=== PATIENT | male | born 1980 | race Caucasian/White ===

== ENCOUNTER 2020-10-04 18:47 | Emergency (ER) | payer OTHER, SELFPAY ==
--- NOTE | 2020-10-04 18:51 | ED.SKABFB ---
HPI - Skin/Abscess/Foreign Bdy General Chief complaint: Skin/Abscess/Foreign Body Stated complaint: insect bite Time Seen by Provider: 10/04/20 19:10 Source: patient and RN notes reviewed Mode of arrival: ambulatory Limitations: no limitations History of Present Illness HPI narrative: 40-year-old male presents with concern for 2 raised areas of itching, redness on the left side of his neck, left eye drainage, watering, irritation. He denies vision changes, fever, body aches. He reports symptoms started after working in his garden on Wednesday. He reports the raised areas on his neck are mildly tender to touch. Reports he has been using antibiotic ointment on the neck. MD complaint: insect bite/sting Related Data Allergies Allergy/AdvReac Type Severity Reaction Status Date / Time No Known Allergies Allergy Mild Verified 10/04/20 19:21 Review of Systems Review of Systems: Narrative: CONSTITUTIONAL: Denies malaise, chills, sweats, or fever. EYES: Denies visual changes. Reports left eye redness,, irritation, watery discharge. ENT: Denies swollen lips, swollen tongue CARDIOVASCULAR: Denies chest pain, palpitations, or edema. RESPIRATORY: Denies cough or dyspnea. SKIN: Reports 2 raised itchy scabbed areas on the left side of his neck MUSCULOSKELETAL: Denies myalgia. NEUROLOGIC: Deniesheadache. All systems reviewed & are unremarkable except as noted in HPI and below PMFSH Comments At time of signature, agree with nursing past medical, surgical, social and family history. There is no relevant family history pertinent to the presenting complaint Exam Narrative: Exam Narrative: GENERAL: Well-appearing, well-nourished, and in no acute distress. HEAD: Normocephalic, atraumatic. EYES: PERRLA, right conjunctive a and conjunctivae clear, and EOMI. left conjunctive and sclera injected, watery drainage noted ENT: Mucous membranes moist. Oropharynx without edema, erythema or lesions. NECK: Supple. No lymphadenopathy CHEST: Clear to auscultation. No respiratory distress. HEART: Regular rate and rhythm. SKIN: Warm, dry. 2 raised 0.5 cm erythematous areas with central scabs noted to the left side of the neck without surrounding erythema, induration, drainage NEURO: Alert and oriented x3. PSYCH: Normal mood and affect Course Course Emergency Course: Patient is aware of diagnosis, understands and agrees to treatment plan. Anticipatory guidance given. Patient agrees to follow-up as directed and is aware of reasons to seek care at the emergency department. Portions of this record may have been created with voice recognition software Vital Signs Vital signs: Reviewed. MDM - Skin/Abscess/Foreign Bdy MDM Narrative Medical decision making narrative: Does not appear at this time to be erythema multiforme, bullous, SJS, TEN; no evidence at this time to suggest RMSF, endocarditis or Lyme disease; patient looks well, nontoxic and is tolerating oral intake; no neurologic signs or symptoms; no headache, photophobia or neck pain; afebrile; appropriate for initial outpatient treatment; discussed the importance of follow-up, patient agrees; question, viral exanthema, contact dermatitis, allergic dermatitis, eczema, urticaria, insect bites, scabies, cellulitis. No soft palate or uvula edema, no tongue, lip edema or other mucosal involvement, no respiratory compromise, no stridor, no wheezing, no wheezing, no history of syncope, no hypotension, no nausea, vomiting, or diarrhea. Instructed patient to go to nearest ER immediately for any worsening symptoms including but not limited to: fever, spreading rash, pain, sore throat, headache, dizziness, chest pain, trouble breathing, or any symptoms concerning to the patient. Consideration of the following conditions may be warranted for the presenting problem, they are not final diagnoses: Bacterial conjunctivitis, allergic conjunctivitis, viral conjunctivitis, foreign body, blepharitis, chalazion, hordeolum, corneal
[2020-10-04 18:57] VITALS: BP 118/78; PULSE 90; RESP 16; TEMP 36.5; O2SAT 99
== END 2020-10-04 19:30 | disposition home or self-care (01) ==
PROVIDERS: Emergency Provider Nurse Practitioner
DX: A49.9 Bacterial infection, unspecified (principal); H10.32 Unspecified acute conjunctivitis, left eye
CPT/HCPCS: 99213; G0463

== ENCOUNTER 2021-04-04 08:00 | Emergency (ER) | payer OTHER, SELFPAY ==
[2021-04-04 08:27] VITALS: BP 128/81; PULSE 82; RESP 20; TEMP 36.5; O2SAT 100
--- NOTE | 2021-04-04 08:35 | ED.GENADULT ---
HPI - General Adult General Chief complaint: Upper Respiratory Infection Stated complaint: sore throat Time Seen by Provider: 04/04/21 08:17 Source: patient and RN notes reviewed Mode of arrival: ambulatory Limitations: no limitations History of Present Illness HPI narrative: Patient presents today complaining of sore throat x2 days that has been worsening since onset. 5 days ago patient got off a 10-day quarantine from COVID-19. Currently rates his pain 7/10, which increases with eating and swallowing. He has been taking ibuprofen without relief. MD complaint: Sore throat Related Data Allergies Allergy/AdvReac Type Severity Reaction Status Date / Time No Known Allergies Allergy Mild Verified 10/04/20 19:21 Review of Systems Review of Systems: CONSTITUTIONAL: Denies body aches, fever, chills, or sweats. EYES: Denies visual changes, redness, or discharge. ENT: Denies rhinorrhea, congestion, or otalgia.+ Sore throat CARDIOVASCULAR: Denies chest pain, palpitations, or edema. RESPIRATORY: Denies cough or dyspnea. GASTROINTESTINAL: Denies abdominal pain, nausea, vomiting, or diarrhea. GENITOURINARY: Denies dysuria or hematuria. SKIN: Denies rash, itching, or wounds. MUSCULOSKELETAL: Denies back pain, joint pain, or myalgia. NEUROLOGIC: Denies headache, numbness, tingling, or weakness. PSYCH: Denies depression or anxiety. [facility] Past Medical History Medical History (Updated 04/04/21 @ 08:39 by Yaquelin Holbrook, [facility], ) History of COVID-19 Comments At time of signature, I have reviewed and agree with nursing past medical, surgical, social and family history unless otherwise noted. Please see nursing chart for further information. There is no relevant family history pertinent to the presenting complaint Exam Narrative: GENERAL: Well-appearing, well-nourished, and in no acute distress. HEAD: Normocephalic, atraumatic. EYES: EOMI. No redness or drainage. Conjunctivae normal. ENT: Mucous membranes pink and moist. Nares clear. No rhinorrhea. TMs normal bilaterally. Throat normal. Uvula midline. 1 x 2 cm ulceration to the right posterior hard palate. NECK: Normal AROM. Supple. No lymphadenopathy. CHEST: No respiratory distress. Clear to auscultation. HEART: Regular rate and rhythm. No murmur appreciated. Normal peripheral pulses. EXTREMITIES: Normal range of motion. No edema. SKIN: Warm, dry, no rash. Capillary refill normal. Normal skin turgor. NEURO: No focal deficits. Alert and oriented x3. Gait steady. PSYCH: Normal affect. No signs of depression or anxiety. Course Course Level of Care: Express Care Visit Vital Signs Vital signs: Vital Signs Temperature 97.7 F 04/04/21 08:27 Pulse Rate 82 04/04/21 08:27 Respiratory Rate 20 04/04/21 08:27 Blood Pressure 128/81 04/04/21 08:27 Pulse Oximetry 100 04/04/21 08:27 Temperature 97.7 F 04/04/21 08:27 Pulse Rate 82 04/04/21 08:27 Respiratory Rate 20 04/04/21 08:27 Blood Pressure 128/81 04/04/21 08:27 Pulse Oximetry 100 04/04/21 08:27 Reviewed. Pt has been instructed to follow up with his PCP regarding his elevated blood pressure today. Medical Decision Making Differential Diagnosis Differential Diagnosis: Strep throat, pharyngitis, aphthous ulcer, URI Vital Signs Vital Signs: Vital Signs Temperature 97.7 F 04/04/21 08:27 Pulse Rate 82 04/04/21 08:27 Respiratory Rate 20 04/04/21 08:27 Blood Pressure 128/81 04/04/21 08:27 Pulse Oximetry 100 04/04/21 08:27 Temperature 97.7 F 04/04/21 08:27 Pulse Rate 82 04/04/21 08:27 Respiratory Rate 20 04/04/21 08:27 Blood Pressure 128/81 04/04/21 08:27 Pulse Oximetry 100 04/04/21 08:27 Lab Data Lab results reviewed: Yes I reviewed the patient's lab results. Lab results narrative: Rapid strep negative Critical Care Time Critical Care Time Critical Care Time: No Discharge Plan Discharge Clinical Impression: Aphthous ulceration Pat
== END 2021-04-04 08:47 | disposition home or self-care (01) ==
PROVIDERS: Emergency Provider Nurse Practitioner
DX: K12.0 Recurrent oral aphthae (principal); Z86.16 Personal history of COVID-19
CPT/HCPCS: 87081; 87880; 99213; G0463

== ENCOUNTER 2023-07-09 14:52 | Observation (INO) | payer OTHER, SELFPAY ==
--- NOTE | ~2023-07-09 | CT_ITS ---
EXAMINATION: CTA brain carotid DATE: 07/09/2023 15:14 INDICATION: Left hemiparesis. Left facial weakness. TECHNIQUE: Computed tomographic angiography (CTA) of the head was performed with 100 mL Omnipaque-350 intravenous contrast. CTA of the neck was performed with intravenous contrast. Automated exposure co ntrol and iterative reconstruction technique were employed. The dose-length product was 1287.72 mGy-c m. Maximum intensity projection and volume rendered 3D-reconstructions were created by the technologi st on a separate workstation. COMPARISON: Head CT 07/09/2023 FINDINGS: HEAD CTA: There is no intracranial hemorrhage, acute infarction, or abnormal intracranial mass lesion . The ventricles are normal in size. There is mild mucosal thickening in the paranasal sinuses. The o rbits are normal. The mastoid air cells are normal. The vertebral arteries are codominant. There is n o significant stenosis of basilar artery or the posterior cerebral arteries. There is no significant stenosis of the intracranial internal carotid arteries or anterior or middle cerebral arteries. Anter ior communicating artery is normal. The posterior communicating arteries are normal. There is no aneu rysm. NECK CTA: There are no pathologically enlarged lymph nodes. There is no significant stenosis of the v ertebral arteries. There is no visible plaque in the proximal internal carotid arteries. There is 0% stenosis of the proximal right internal carotid artery relative to normal distal artery lumen diamete r (NASCET criteria). There is 0% stenosis of the proximal left internal carotid artery relative to no rmal distal artery lumen diameter. There is interbody fusion at C6-C7. IMPRESSION: 1. Normal brain. No aneurysm or significant intracranial arterial stenosis. 2. 0% stenosis of the proximal internal carotid arteries relative to normal distal artery lumen diame ters (NASCET criteria). Reviewed, dictated and finalized at location A. IMPRESSION: 1. Normal brain. No aneurysm or significant intracranial arterial stenosis. 2. 0% stenosis of the proximal internal carotid arteries relative to normal dis sigrid artery lumen diameters (NASCET criteria).
--- NOTE | ~2023-07-09 | XR_ITS ---
EXAMINATION: XR chest 1V portable DATE: 07/09/2023 15:46 INDICATION: Stroke. TECHNIQUE: A single frontal view of the chest was obtained. COMPARISON: None. FINDINGS: There is no pneumonia, pleural effusion, or pneumothorax. The heart size is normal. IMPRESSION: 1. No acute cardiopulmonary disease. Reviewed, dictated and finalized at location A.
--- NOTE | ~2023-07-09 | CT_ITS ---
EXAMINATION: CT brain wo con DATE: 07/09/2023 15:09 INDICATION: Left-sided hemiparesis and facial droop. TECHNIQUE: Computed tomography (CT) of the head was performed without intravenous contrast. Sagittal and coronal reconstructions were performed. The mA was adjusted according to patient size. Iterative reconstruction technique was employed. The dose-length product was 681.00 mGy-cm. COMPARISON: None FINDINGS: No acute intracranial hemorrhage, acute infarction or abnormal extra axial fluid collection. Ventricl es are normal and symmetric. No mass/mass effect. The orbits, paranasal sinuses and mastoid air cells are normal. IMPRESSION: 1. Normal head CT. Reviewed, dictated and finalized at location A. IMPRESSION: 1. Normal head CT.
--- NOTE | ~2023-07-09 | MR_ITS ---
EXAMINATION: MR brain/brain stem wo/w con DATE: 07/10/2023 12:00 INDICATION: left sided paresthesias TECHNIQUE: Magnetic resonance imaging (MRI) of the brain and brainstem was performed with 17 mL intra venous contrast. Sequences included sagittal and axial T1-weighted SE, axial diffusion-weighted FS EP I ASSET, axial T2*-weighted GRE, axial T2-weighted FLAIR Propeller, and axial T2-weighted Propeller. Postcontrast axial and coronal T1-weighted SE was obtained. Apparent diffusion coefficient (ADC) maps were created. COMPARISON: CT brain and CTA brain carotid 07/09/2023. FINDINGS: No abnormal restricted diffusion to suggest acute ischemic infarct. No MRI evidence of hemorrhage or extra-axial collection. No suspicious foci of susceptibility to suggest prior intraparenchymal hemorr delaney. Normal white matter signal. No evidence of advanced or lobar predominant parenchymal volume los s. The basilar cisterns are patent. Flow voids are preserved. Mild ethmoid and maxillary mucosal thic kening. Globes and orbital contents are within normal limits. No abnormal enhancing lesions. IMPRESSION: Normal MR brain findings. Reviewed, dictated and finalized at location K. IMPRESSION: Normal MR brain findings.
[2023-07-09 14:56] VITALS: BP 148/83; PULSE 95; RESP 18; O2SAT 100
--- NOTE | 2023-07-09 14:57 | ECG_ITS ---
SEE SCANNED COPY FOR CONFIRMED REPORT MTDD
--- NOTE | 2023-07-09 15:04 | ED.NEUROSD ---
HPI - Neuro Symptoms/Deficit General Chief Complaint: Suspected CVA Stated Complaint: L SIDED NUMBNESS/TINGLING SINCE 1245 Time Seen by Provider: 07/09/23 14:56 Source: patient and family () Limitations: no limitations History of Present Illness HPI Narrative: Patient states at 12:45 he experiened tingling on his left inner thigh that quickly spread and became tingling throughtout other parts of left side, down arrm and into neck, all unilateral. He believes this lasted approximately 15 minutes and then approximately 1-1/2 hours later he appreciated the sensation of numbness in these same areas. was concerned about drooping face. His cheek and tongue also has paresthesias but no change in taste sensation. Has not felt weak in this side. This has never occurred before. Related Data Allergies Allergy/AdvReac Type Severity Reaction Status Date / Time No Known Allergies Allergy Mild Verified 07/09/23 14:52 [facility] Past Medical History Medical History (Updated 07/12/23 @ 06:30 by Gertrudis Terry MD) ASD (atrial septal defect) History of COVID-19 Right thalamic infarction Surgical History Surgical History History of tonsillectomy Family History Family History Father Leukemia Afib Mother Hypertension Social History Social History Social History: Surrogate medical decision maker: Nettie Akhtar, spouse. Code status: Full code. Smoking status: Never smoker Additional living arrangements comments: Lives with spouse and children in [place]. 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 Exam Narrative: GENERAL: Well-appearing, well-nourished, and in no acute distress. HEAD: Normocephalic, atraumatic. Mild smile asymmetry without loss of nasolabial fold. EYES: Non injected, non icteric ENT: Nares clear, no rhinorrhea or epistaxis. Possible uvula deviation to the unaffected side though without posterior oropharyngeal mass or significant tonsillar hypertrophy NECK: Supple. CHEST: Speaking in full sentences. No respiratory distress. HEART: Regular rate and rhythm. . ABDOMEN: Soft, nondistended. EXTREMITIES: Normal range of motion. No edema. SKIN: Warm, dry, no rash. NEURO: Strength normal and symmetric throughout. Alert and oriented x3. Follows commands. Speaks without aphasia. Diminished sensation on left compared to right. Symmetry with closing eyes and furrowed brow. PSYCH: Normal mood and affect. Course Vital Signs Vital signs: Vital Signs Pulse Rate 95 07/09/23 14:56 Respiratory Rate 18 07/09/23 14:56 Blood Pressure 148/83 H 07/09/23 14:56 Pulse Oximetry 100 07/09/23 14:56 Oxygen Delivery Room Air 07/09/23 14:56 Temperature 98.4 F 07/10/23 14:00 Pulse Rate 58 L 07/10/23 16:00 Respiratory Rate 18 07/10/23 14:00 Blood Pressure 122/75 07/10/23 14:00 Pulse Oximetry 99 07/10/23 14:00 Oxygen Delivery Room Air 07/10/23 08:35 MDM - Neuro Symptoms/Deficit MDM Narrative Medical decision making narrative: This is a 43 year old male who presents to the emergency department with concern for possible stroke. Last known well is 12:45. The patient is protecting their airway which is patent. An IV is established by nursing staff blood work sent to the lab for evaluation. An EKG will be performed. Accu-Chek was reportedly without major abnormality. NIHSS was evaluated per below. The patient was transported immediately to CT scan per stroke protocol for evaluation of acute intracranial bleed. NIHSS Level Of consciousness: 0 Month and age: 0 Follows commands: 0 Gaze palsy: 0 Visual waldrop: 0 Facial palsy: 1 Left arm motor drift: 0 Right arm motor drift:0 Left leg motor drift:0 Right leg motor drift:0 Limb ataxia:0 Sensation: 1 Aphasia: 0 Dysa
[2023-07-09 15:08] LABS: Glucose Point of Care 116 mg/dl (65-105)
[2023-07-09 15:09] LABS: Estimated Glomerular Filt Rate > 60
[2023-07-09 15:13] LABS: Basophils Absolute Auto 0.1 K/mm3 (0.0-0.1); Eosinophils Absolute Auto 0.2 K/mm3 (0-0.3); Hematocrit 43.4 % (42.0-52.0); Hemoglobin 14.8 g/dL (14.0-18.0); Immature Granulocyte Absolute 0.01 K/mm3 (0.00-0.031); Immature Granulocyte Percent A 0.2 % (0-0.5); Lymphocytes Absolute Auto 2.28 K/mm3 (0.9-3.2); Lymphocytes Percent Auto 38.1 % (18.3-44.2); Mean Corpuscular HGB Conc 34.1 g/dl (32-36); Mean Corpuscular Hemoglobin 30.8 pg (26-34); Mean Corpuscular Volume 90.4 fl (80-100); Mean Platelet Volume 9.2 fl (7.4-10.4); Monocytes Absolute Auto 0.3 K/mm3 (0.1-0.6); Monocytes Percent Auto 5.3 % (2.6-8.5); Neutrophils Absolute Auto 3.1 K/mm3 (1.3-6.7); Neutrophils Percent Auto 52.4 % (45.5-73.1); Platelet Count Result 185 k/mm3 (150-375); Red Cell Distribution Width 11.8 % (11.5-14.5)
[2023-07-09 15:22] VITALS: BP 148/83; PULSE 84; RESP 19; O2SAT 100
[2023-07-09 15:22] LABS: Prothrombin Time 13.2 Seconds (11.1-14.7)
[2023-07-09 15:23] LABS: Partial Thromboplastin Time 30.2 Seconds (22.3-36.8)
[2023-07-09 15:28] LABS: Ethanol < 10 mg/dL (<10)
[2023-07-09 15:29] LABS: Alanine Aminotransferase 19 U/L (6-50); Albumin Level 4.5 g/dL (3.5-5.1); Alkaline Phosphatase 53 U/L (38-126); Anion Gap 6 mmol/L (4-12); Aspartate Amino Transferase 28 U/L (17-59); Bilirubin,Total 0.6 mg/dL (0.2-1.3); Blood Urea Nitrogen 15 mg/dL (9-20); Calcium 9.2 mg/dL (8.4-10.2); Carbon Dioxide 30 mmol/L (22-30); Chloride 102 mmol/L (98-107); Estimated CRCL calculation 96 ml/min; Estimated Glomerular Filt Rate > 60; Glucose 96 mg/dL (65-110); Potassium 3.7 mmol/L (3.4-5.0); Sodium 138 mmol/L (137-145)
[2023-07-09 15:32] VITALS: BP 140/83; PULSE 78; RESP 13; O2SAT 100
[2023-07-09 15:41] LABS: Troponin I < 0.012 ng/mL (0.000-0.034)
[2023-07-09 16:29] LABS: Appearance Urine Clear (Clear); Bilirubin Urine Negative (Negative); Blood Urine Negative (Negative); Color Urine Yellow (Yellow); Glucose Urine UA Negative (Negative); Ketones Urine Negative (Negative); Leukocyte Esterase Ur Negative LEU/UL (Negative); Nitrate Urine Negative (Negative); Protein Urine Negative (Negative); Urobilinogen Urine 0.2 mg/dL (<2.0)
[2023-07-09 16:30] LABS: Add Urine Microscopic? NO; Specific Grav Ur 1.051 (1.001-1.035)
[2023-07-09 16:37] LABS: Cholesterol 151 mg/dL (0-200); HDL Direct 37 mg/dL; Triglycerides 171 mg/dL (<150)
[2023-07-09 16:47] LABS: LDL Cholesterol Direct 96 mg/dL
[2023-07-09 17:04] VITALS: BP 141/96; PULSE 74; RESP 15; O2SAT 98
[2023-07-09] MEDS: ASPIRIN 81 MG CHEWABLE TABLET 324 MG PO (17:04)
--- NOTE | 2023-07-09 17:16 | PM.IMHP ---
H&P: HPI History of Present Illness Date/Time: 07/09/23 17:00 Chief Complaint: Numbness/tingling left side. Narrative: This is a previously healthy 43-year-old male who presented to the emergency department via private vehicle for evaluation of left sided numbness and tingling. The patient provides the following history. He was in his usual state of health when he got up this morning. At approximately 12:45 he developed sudden onset of tingling in the left leg which quickly extended into the left upper extremity and left side of his face to just below the left eye. The tingling lasted for few minutes and since that time his sensation has been blunted in the same distribution. He feels as though the left side of his mouth is drooping slightly as well. He denies vertigo, visual changes, difficulties speaking and swallowing, and focal weakness. He also denies palpitations, sensations of racing heart, and known history of atrial fibrillation. No personal or family history of hypercoagulable state. He denies recent illness and vaccinations. Of note, he had an echocardiogram done several years ago for evaluation of a syncopal episode at which time he was told that he may have a small PFO or ASD but he is uncertain. Event monitor worn thereafter showed transient type 2 heart block, Mobitz 1 which occurred during sleep. In the ED: Blood pressures have been in the 140s over 80s since arrival. CMP and CBC were pretty unremarkable. Urine drug screen was negative. Brain CT what was normal. CTA of the head and neck showed no aneurysm or significant intracranial stenosis and 0% stenosis of the proximal internal carotid arteries. Stroke team at [facility] was consulted by the ED physician and the case was discussed at length. Ultimately the patient decided against tPA given minimal and only sensory deficits. He was given aspirin 324 mg and is being admitted in this setting for further workup. Review of Systems Review of Systems: 12 systems were reviewed and are negative except for as per HPI. [facility] Past Medical History Medical History History of COVID-19 Surgical History Surgical History History of tonsillectomy Family History Family History Father Leukemia Afib Mother Hypertension Social History Social History (Updated 07/09/23 @ 19:37 by Diann Ruelas PA-C) Social History: Surrogate medical decision maker: Nettie Akhtar, spouse. Code status: Full code. Smoking status: Never smoker Additional living arrangements comments: Lives with spouse and children in [place]. 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 Home Medications and Allergies Home Medications Medication Instructions Recorded Confirmed Type No Home Medications 07/09/23 07/09/23 History Allergies Allergy/AdvReac Type Severity Reaction Status Date / Time No Known Allergies Allergy Mild Verified 07/09/23 14:52 Vital Signs Vital Signs - 24 hr 07/09/23 14:56 07/09/23 15:22 07/09/23 15:32 Pulse Rate 95 84 78 Respiratory Rate 18 19 13 Blood Pressure 148/83 H 148/83 H 140/83 Pulse Oximetry 100 100 100 Oxygen Delivery Room Air 07/09/23 17:04 Pulse Rate 74 Respiratory Rate 15 Blood Pressure 141/96 H Pulse Oximetry 98 Oxygen Delivery Exam Narrative: General: Well-developed, nontoxic-appearing male in the semi-Friedman position in bed in no distress. Weight: 86.1 kg. BMI: 25.0. HEENT: Normocephalic, atraumatic. PERRL, EOMI. Sclera anicteric. Oral mucosa moist. Oropharynx clear. Neck: Supple. No bruits. Respiratory: Lungs are clear to auscultation bilaterally. Cardiovascular: Regular rate and rhythm with S1-S2. No murmur, rub, or gallop. Gastrointestinal: Abdomen is soft, nontender, and
[2023-07-09 17:17] LABS: Magnesium 2.1 mg/dL (1.6-2.3)
--- NOTE | 2023-07-09 17:35 | PC.NURSE ---
This patient, Shekhar Akhtar, was admitted to [facility] Surg Room 309-01 at 1735. Patient/family oriented to hospital policies and general routines including ID bracelet, bed and alarms, visiting hours, pain management, procedures, bathroom and other care routines, personal items, smoking policy, room service/diet, and visiting hours. Information on how to activate the Rapid Response Team has been discussed. Patient/Family are encouraged to report perceived risks to care and to ask questions if they do not understand what they are told or what they should do.
[2023-07-09 17:47] LABS: Hemoglobin A1C 5.1 % (<5.7)
[2023-07-09 18:34] LABS: Amphetamine Screen Urine Negative (Negative); Barbiturate Screen Urine Negative (Negative); Benzodiazepines Screen Urine Negative (Negative); Cannabinoid Screen Urine Negative (Negative); Cocaine Screen Urine Negative (Negative); Methadone Screen Urine Negative (Negative); Opiate Screen Urine Negative (Negative); Phencyclidine Screen Urine Negative (Negative)
[2023-07-09 18:36] VITALS: BMI 25.0
[2023-07-09 20:00] VITALS: PULSE 58
[2023-07-09 20:23] LABS: Erythrocyte Sedimentation Rate 11 mm/hr (0-20)
[2023-07-09 20:37] VITALS: BP 111/72; PULSE 53; RESP 14; TEMP 36.2; O2SAT 98
[2023-07-10] VITALS: PULSE 60
--- NOTE | 2023-07-10 | ECHO_ITS ---
Patient Info Name: Shekhar Akhtar Age: 43 years : 1980 Gender: Male Ht: 73 in Wt: 189 lbs BSA: 2.11 m2 HR: 58 bpm BP: 107 / 62 mmHg Heart Rhythm: Sinus Rhythm Technical Quality: Good Exam Date: 07/10/2023 9:59 AM Exam Location: Echo Lab Patient Status: Inpatient Admit Date: 07/09/2023 Staff Ordering Physician: Diann Ruelas PA-C Therapist'S Assistant: Kaycee Vences RDCS Attending Provider: Shakira Atkinson MD Referring Physician: Suraj FOSTER; Exam Type: CA echo doppler w bubble study Study Info Indications - neurologic symptom, hx of possible PFO Complete two-dimensional, color flow and Doppler transthoracic echocardiogram is performed with agitated saline. Summary 1. Left ventricular chamber dimension is normal. 2. Left ventricular systolic function is normal, estimated at 60-65%. 3. There is no increased left ventricular wall thickness. 4. The left ventricular diastolic function is normal. 5. [id number] shunt at the interatrial level with injection of agitated saline consistent with small atrial septal defect. Thin and hypermobile atrial septum. Clinical correlation advised. Consider transesophageal echocardiogram if clinically indicated. 6. There is trace mitral valve regurgitation. 7. There is trace tricuspid valve regurgitation. 8. No pulmonary hypertension, estimated pulmonary arterial systolic pressure is 26 mmHg. Left Ventricle Left ventricular chamber dimension is normal. Left ventricular systolic function is normal, estimated at 60-65%. There is no increased left ventricular wall thickness. The left ventricular diastolic function is normal. Right Ventricle Right ventricular chamber dimension is normal. Right ventricular systolic function is normal. Left Atria Left atrial chamber dimension is normal. Right Atria Right atrial chamber dimension is normal. Atrial Septum [id number] shunt at the interatrial level with injection of agitated saline consistent with small atrial septal defect. Thin and hypermobile atrial septum. Clinical correlation advised. Consider transesophageal echocardiogram if clinically indicated. Aortic Valve The aortic valve is not well visualized. There is no aortic valve stenosis. There is no aortic valve regurgitation. Pulmonic Valve The pulmonic valve is not well visualized. There is trace pulmonic regurgitation. Mitral Valve The mitral valve has normal leaflets. There is trace mitral valve regurgitation. Tricuspid Valve The tricuspid valve leaflets are normal. There is trace tricuspid valve regurgitation. No pulmonary hypertension, estimated pulmonary arterial systolic pressure is 26 mmHg. Pericardium/Pleural The pericardium appears normal. There is no pericardial effusion. Inferior Vena Cava Normal inferior vena cava with <50% collapse upon inspiration consistent with elevated right atrial pressure, 10 mmHg. Aorta The aortic root size at the sinus of Valsalva is normal. Left Ventricular Outflow Tract Name Value Normal LVOT 2D LVOT Diameter 2.1 cm LVOT Doppler LVOT Peak Gradient 5 mmHg LVOT Mean Gradient 3 mmHg LVOT VTI 25 cm
[2023-07-10 04:00] VITALS: PULSE 57
[2023-07-10 05:53] VITALS: BP 107/62; PULSE 58; RESP 16; TEMP 36.6; O2SAT 97
[2023-07-10 08:00] VITALS: PULSE 67
[2023-07-10] MEDS: ASPIRIN 81 MG ENTERIC TABLET PO (08:39)
[2023-07-10] MEDS: ATORVASTATIN 40 MG TABLET PO (08:39)
[2023-07-10 14:00] VITALS: BP 122/75; PULSE 69; RESP 18; TEMP 36.9; O2SAT 99
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
[2023-07-10 16:00] VITALS: PULSE 58
--- NOTE | 2023-07-10 16:41 | PM.DS ---
DS: Admitting Diagnosis Discharge Date 07/10/23 Admitting Diagnosis Left sided numbness DS: Discharge Diagnosis Discharge Diagnosis (1) Neurological symptoms: Code(s): R29.90 - Unspecified symptoms and signs involving the nervous system Status: Acute (2) Elevated blood pressure reading: Code(s): R03.0 - Elevated blood-pressure reading, without diagnosis of hypertension Status: Acute (3) ASD (atrial septal defect): Code(s): Q21.10 - Atrial septal defect, unspecified Status: Acute DS: Summary Hospital Course Reason for hospitalization: 43yo healthy male who presents with left sided numbness. Please see H&P for details. Hospital Course: The patient presented to the emergency department for evaluation of left-sided paresthesias. NIH stroke scale was 2 on arrival (1 for mild left mouth droop and 1 for decreased sensation). EKG showing normal sinus rhythm with possible left atrial enlargement. CT brain was normal. CTA head/neck showing no acute findings. CXR was clear. UA was concenrated but otherwise was normal. CBC, CMP, PT and PTT normal. A1c 5.1. TG 171, TC 151, LDL 96 and HDL 37. ED physician spoke with the stroke team at [facility] and they said it would not be inappropriate to give tPA however given minimal and only sensory deficits his outcome is favorable. Shared decision making was done with the patient who elected against tPA as per ED physician note. Dr. Rizvi, neurology, was consulted and she recommends TIA/stroke workup. Hypercoagulable panel also ordered as well as ESR. Patient was given ASA and admitted. Tele showing 2 episodes of Mobitz type I while sleeping. Brain MRI was normal. ASA continued and Lipitor added. Neurology consulted and recommended adding Plavix for 3 weeks. Echocardiogram with bubble study showing EF 60-65% with right to left shunt at the interatrial level c/w atrial septal defect. He had trace valvular disease. Blood pressure was mildly elevated on admission to 148/83 but normal on repeat so probably related to anxiety. Patient will need further cardiac monitoring so will send to Cardiology for loop recorder. Patient to follow-up with Neurology. Discussed with Cardiology by phone who recommended patient follow-up with them in the clinic for further discussion about evaluation and treatment. He overall did well and was able to be discharged home on 07/10/23. Status at Discharge Cognitive/behavioral status at discharge: stable Time Spent with Patient Time attestation: Total time spent providing and/or coordinating discharge services: 38 minutes Time spent: Greater than 30 minutes Specific discharge activities: discussed with neurology Exam Narrative: AF 98.4 122/75 69 18 99% ra Gen - NARD Chest - CTA bilaterally, nml RR CV - RRR S1/S2. Tele showing 2 episodes of Mobitz I Abd - Soft, NT/ND, Positive BS Ext - No pedal edema Neuro - Alert and oriented. Nonfocal exam. Slight weakness to the left soft palate. Psych - Nml mood and affect Skin - Warm and dry DS: Data Data Completed and Pending Labs on day of discharge: Labs from last 24 hours 07/09/23 07/09/23 07/09/23 19:49 16:21 15:05 ESR 11 Prot C Funct Activity Pending Protein S Activity Pending Factor V Leiden Mutat Pending Factor V Mutat Interp Pending Hemoglobin A1c 5.1 Magnesium 2.1 LDL Cholesterol Direct 96 Urine Opiates Screen Negative Urine Methadone Screen Negative Ur Barbiturates Screen Negative Ur Phencyclidine Scrn Negative Ur Amphetamine Screen Negative U Benzodiazepines Scrn Negative Urine Cocaine Screen Negative U Cannabinoids Screen Negative JAIME Screen Pending Anti-DNA Antibody Pending Beta-2-GPI IgG Ab Pending Beta-2-GPI IgA Ab Pending Beta-2-GPI IgM Ab Pending Phosphatidylserine Ab Pending Phosphatidylserine IgG Pending Phosphatidylserine IgA Pending Phosphatidylse
[2023-07-10] MEDS: CLOPIDOGREL BISULFATE 75 MG TABLET PO (18:06)
--- NOTE | 2023-07-10 18:34 | PC.NURSE ---
I have reviewed Jia's charting and agree with her findings at this time. Will review again once she does care plans and telemetry.
[2023-07-12 14:28] LABS: Rapid Plasma Reagin Non-Reactive (NonReactive)
[2023-07-17 04:43] LABS: PS/PT AB IgG 13 U (< OR = 30); PS/PT AB IgM <9 U (< OR = 30)
[2023-07-18 11:23] LABS: Anti Cardio Antibody IgM <2.0 MPL-U/mL; Anti Cardiolipin Antibody IgA <2.0 APL-U/mL; Anti Cardiolipin Antibody IgG <2.0 GPL-U/mL
[2023-07-19 13:24] LABS: Factor V (Leiden) Mutation NEGATIVE
--- NOTE | 2023-07-20 08:54 | PC.NURSE ---
Factor V is negative. Dr. Ciera coates.
--- NOTE | 2023-07-23 11:41 | PC.NURSE ---
Protein C is WNL at 112. Dr. Ciera coates.
== END 2023-07-10 18:33 | disposition home or self-care (01) ==
LOC: ANHED 16:16 → ANH3MEDSUR 07-10 17:00
PROVIDERS: Admitting Provider Hospitalist; Emergency Provider Student in an Organized Health Care Education/Training Program; Visit Provider Internal Medicine
DX: R20.2 Paresthesia of skin (principal); R29.810 Facial weakness; R03.0 Elevated blood-pressure reading, without diagnosis of hypertension; Q21.10 Atrial septal defect, unspecified; I44.1 Atrioventricular block, second degree; Z86.16 Personal history of COVID-19; Z86.73 Personal history of transient ischemic attack (TIA), and cerebral infarction without residual deficits; R29.702 NIHSS score 2
CPT/HCPCS: 36415; 70450; 70496; 70498; 70553; 71045; 80053; 80061; 80307; 81003; 81241; 82948; 83036; 83735; 84484; 85025; 85303; 85306; 85610; 85652; 85730; 86038; 86146; 86225; 86592; 93005; 93306; 96375; 99285; A9270; A9577; G0378; Q9967

== ENCOUNTER 2024-06-07 00:23 | Day surgery (SDC) | payer OTHER, SELFPAY ==
[2024-06-06 13:41] VITALS: BMI 24.4
[2024-06-07] VITALS (9 sets, daily range): BP systolic 108–128; BP diastolic 72–86; PULSE 60–84; RESP 12–17; TEMP 36.8; O2SAT 98–100
--- OUTSIDE RECORDS SUMMARY | 2024-06-07 00:27 | XMS_ITS | Referral Summary ---
Author Organization [facility] Address [address] [place] [address] Care Team Providers Care Tawer Name Role Phone Alexandr Lan MD Unavailable [phone] Varsha Arenas MD Primary Care Provider [phone] Encounters Date Type Department Care Team Description 05/31/2024 Telephone [facility] Cardiology [address] [facility] [address] [place] [phone] Alexandr Lan MD 05/30/2024 4:36 PM CDT - 05/30/2024 11:59 PM CDT Hospital Encounter [facility] ([facility]) [address] [place] [id number] Tj Silva MD Cerebrovascular accident (CVA) due to embolism of cerebral artery (HCC) Discharge Disposition: Discharge to home or self care 05/26/2024 Telephone [facility] Cardiology [address] [place] [address] [address] [place] [address] Alexandr Lan MD 05/08/2024 8:30 AM DYNAMOMETER TESTER ENGINE Office Visit [facility] Stroke [address] [facility] [address] [place] [phone] Tj Silva MD Cerebrovascular accident (CVA) due to embolism of cerebral artery (HCC) 04/13/2024 8:59 AM DYNAMOMETER TESTER ENGINE - 04/13/2024 11:59 PM DYNAMOMETER TESTER ENGINE Hospital Encounter [facility] ([facility]) [address] [place] [address] Discharge Disposition: Discharge to home or self care 04/13/2024 8:50 AM DYNAMOMETER TESTER ENGINE - 04/13/2024 11:59 PM DYNAMOMETER TESTER ENGINE Hospital Encounter [facility] ([facility]) [address] [place] [address] Discharge Disposition: Discharge to home or self care 04/13/2024 8:47 AM DYNAMOMETER TESTER ENGINE - 04/13/2024 11:59 PM DYNAMOMETER TESTER ENGINE Hospital Encounter [facility] ([facility]) [address] [place] [address] Discharge Disposition: Discharge to home or self care 03/31/2024 Telephone [facility] Scheduling [address] [place] [address] Meeta Hollingsworth 03/29/2024 8:15 AM DYNAMOMETER TESTER ENGINE Office Visit [facility] [address] [facility] [address] [place] [phone] Hillary Richardson, AMY Visual disturbance (Primary Dx); Patent foramen ovale; Cerebrovascular accident (CVA) due to embolism of cerebral artery (HCC) 03/23/2024 Telephone [facility] Ophthalmology [address] [place] [id number] Hillary Richardson, OD FYI from Last 3 Months Allergies No known active allergies Medications aspirin 81 mg enteric coated tablet Take 1 tablet (81 mg total) by mouth daily 4 07/22/19 25 Active clopidogreL (PLAVIX) 75 mg tablet Take 1 tablet (75 mg total) by mouth every morning 90 tablet 4 12/08/19 25 Active Additional Information Patient not taking.Reported on 03/29/2024 atorvastatin (LIPITOR) 40 mg tablet TAKE 1 TABLET(40 MG) BY MOUTH DAILY 90 tablet 3 4 Active Additional Information Patient taking differently: 20 mgoral Daily, Reported on 05/08/2024 multivitamin tablet Take 1 tablet by mouth daily Active OMEGA-3 FATTY ACIDS ORAL Take by mouth 2 (two) times a day Active Active Problems Problem Noted Date Diagnosed Date Visual disturbance 03/29/2024 Assessment & Plan (03/29/2024 12:07 PM DYNAMOMETER TESTER ENGINE): Visual field (VF) full on confrontation Normal RNFL, ganglion cell layer (GCL), and macular thickness OU RTC for baseline HVF Cerebrovascular accident (CV A) due to embolism of cerebral artery 07/15/2023 Patent foramen ovale 07/15/2023 Lentigo 10/05/2012 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 2-3 times a week 08/11/2023 Q2: How many drinks containi ng alcohol do you have on a typical day when you are drinking? 1 or 2 08/11/2023 Q3: How often do you have si x or more drinks on one occasion? Less than monthly 08/11/2023 Personal Safety Answer Date Recorded Have you ever been in or are you currently in a harmful physical or emotional relationship or is someone making you feel afraid or unsafe? Denies 08/11/2023 Sex and Gender Information Value Date Recorded Sex Assigned at Not on file Legal Sex Male 7:22 AM DYNAMOMETER TESTER ENGINE Gender Identity Not on file Sexual Orientation Not on file Last Filed Vital Signs Vital Sign Reading Time Taken Comments Blood Pressure 133/82 05/08/2024 8:00 AM DYNAMOMETER TESTER ENGINE Pulse 65 05/08/2024 8:00 AM DYNAMOMETER TESTER ENGINE Temperature 36.7 C (98.1 F) 08/11/2023 6:50 AM CDT Respiratory Rate 21 08/11/2023 11:50 AM CDT Oxygen Saturation 99% 12/08/2023 8:05 AM CDT Inhaled Oxygen Concentration - - Weight 83.9 kg (185 lb) 05/30/2024 4:44 PM CDT Height 185.4 cm (6' 1 ) 05/30/2024 4:44 PM CDT Body Mass Index 24.41 05/30/2024 4:44 PM CDT Plan of Treatment Not on file Medical Devices Implanted Type Area Set Illustrator Device Identifier Shelf Expiration Date Model / Serial / Lot [employer] 30mm Soft Wire Frame Fluoroscopic Image Septal Occluder [id number] - [id number] - [id number] Implanted:Qty: 1 on 08/11/2023 by Abdirahman Weber MD PhD at [facility] Septal Defect Closure Device N/A: Atrial Septal Defect [employer] 04/08/2025 [id number] / [id number] / Description:3T or less first level [employer] Device Clsr Perclose Prostyle Sut-Mediatd Closure-Repair Sys 64475-69 - [id number] - [id number] Implanted:Qty: 1 on 08/11/2023 by Abdirahman Weber MD PhD at [facility] Vascular Closure Device Right: Femoral Vein [employer] 04/14/2025 [id number] / [id number] / [id number] [employer] Device Clsr Perclose Prostyle Sut-Mediatd Closure-Repair Sys 55629-99 - [id number] - [id number] Implanted:Qty: 1 on 08/11/2023 by Abdirahman Weber MD PhD at [facility] Vascular Closure Device Left: Femoral Vein [employer] 04/14/2025 [id number] / [id number] / [id number] Procedures Procedure Name Priority Date/Time Associated Diagnosis Comments MRI ORBIT W WO CONTRAST Schedule Routine, Read Routine (OP Routine) 05/30/2024 6:09 PM CDT Cerebrovascular accident (CVA) due to embolism of cerebral artery (HCC) MRI BRAIN W WO CONTRAST Schedule Routine, Read Routine (OP Routine) 05/30/2024 6:09 PM CDT Cerebrovascular accident (CVA) due to embolism of cerebral artery (HCC) NEURO CT OUTSIDE REFERENCE Routine 04/13/2024 8:59 AM DYNAMOMETER TESTER ENGINE NEURO CT OUTSIDE REFERENCE Routine 04/13/2024 8:50 AM DYNAMOMETER TESTER ENGINE NEURO MR OUTSIDE REFERENCE Routine 04/13/2024 8:47 AM DYNAMOMETER TESTER ENGINE OCT, RETINA - OU - BOTH EYES Routine 03/29/2024 12:08 PM DYNAMOMETER TESTER ENGINE Visual disturbance OCT, OPTIC NERVE - OU - BOTH EYES Routine 03/29/2024 12:07 PM DYNAMOMETER TESTER ENGINE Visual disturbance from Last 3 Months Results * MRI Brain W WO Contrast (05/30/2024 6:09 PM CDT) Anatomical Region Laterality Modality Head and Neck N/A Magnetic Resonan ce 05/31/2024 10:0 6 AM CDT Impressions 05/31/2024 10:58 AM CDT 1. No acute intracranial abnormality. 2. No acute abnormality of the orbits. 3. There is a 3 mm hypoattenuating focus in the anterior left lateral aspect of the pituitary. Differentials include pituitary microadenoma or pars intermedia cyst. Pituitary protocol MRI can be obtained for further evaluation if clinically indicated. Dictated by: Olvin Jon D.O. The radiology attending physician has personally reviewed this study, and had reviewed and/or edited this written report and agrees with it. Electronically signed by: Jess Serrano M.D. Narrative 05/31/2024 10:58 AM CDT EXAMINATION: 1. Magnetic resonance imaging (MRI) of the brain and brainstem without and with contrast 2. Magnetic resonance imaging (MRI) of the orbits without and with contrast HISTORY: 43 years-old Male with Stroke, follow up. TECHNIQUE: Multiplanar multi-weighted MRI of the brain and brainstem was performed without and with intravenous contrast using the general brain protocol. Multiplanar multi-weighted MRI of the orbits was performed without and with intravenous contrast using the standard protocol. This included multiplanar high resolution imaging of the orbits and optic nerves. Contrast information: 16 mL Gadoterate Meglumine IV COMPARISON: MRI brain 07/10/2023. FINDINGS: ORBITS: Both globes are normal in shape and outline without proptosis. The extraocular muscles are normal in size. No intra- or extraconal masses are present. The intraconal fat is normal. The orbital fernández are intact. The lacrimal glands are normal in appearance. Meckel's cave appears normal on each side. The carotid artery flow voids are normal. The optic nerves and optic chiasm are normal. The suprasellar cistern is normal. There is no abnormal contrast enhancement. BRAIN: The scalp and calvarium are normal. The superior sagittal sinus demonstrates normal venous flow. The corpus callosum is normal in shape and signal intensity. The posterior fossa is unremarkable. There is a 3 mm hypoattenuating focus within the left anterior pituitary (series 5009, image 85; series 18, image 31). The brainstem and craniocervical junction are unremarkable. Diffusion weighted images reveal no hyperintensities to suggest acute cerebral infarction. The susceptibility weighted sequences reveal no evidence of acute or chronic hemorrhage. The ventricles are normal in size and position without evidence of hydrocephalus. Mild paranasal sinus mucosal thickening. The visualized portions of the mastoids are unremarkable. The orbits appear normal. Normal flow voids are demonstrated in the carotid arteries and basilar artery. There is no abnormal contrast enhancement. Procedure Note Jess Serrano MD - 05/31/2024 EXAMINATION: 1. Magnetic resonance imaging (MRI) of the brain and brainstem without and with contrast 2. Magnetic resonance imaging (MRI) of the orbits without and with contrast HISTORY: 43 years-old Male with Stroke, follow up. TECHNIQUE: Multiplanar multi-weighted MRI of the brain and brainstem was performed without and with intravenous contrast using the general brain protocol. Multiplanar multi-weighted MRI of the orbits was performed without and with intravenous contrast using the standard protocol. This included multiplanar high resolution imaging of the orbits and optic nerves. Contrast information: 16 mL Gadoterate Meglumine IV COMPARISON: MRI brain 07/10/2023. FINDINGS: ORBITS: Both globes are normal in shape and outline without proptosis. The extraocular muscles are normal in size. No intra- or extraconal masses are present. The intraconal fat is normal. The orbital fernández are intact. The lacrimal glands are normal in appearance. Meckel's cave appears normal on each side. The carotid artery flow voids are normal. The optic nerves and optic chiasm are normal. The suprasellar cistern is normal. There is no abnormal contrast enhancement. BRAIN: The scalp and calvarium are normal. The superior sagittal sinus demonstrates normal venous flow. The corpus callosum is normal in shape and signal intensity. The posterior fossa is unremarkable. There is a 3 mm hypoattenuating focus within the left anterior pituitary (series 5009, image 85; series 18, image 31). The brainstem and craniocervical junction are unremarkable. Diffusion weighted images reveal no hyperintensities to suggest acute cerebral infarction. The susceptibility weighted sequences reveal no evidence of acute or chronic hemorrhage. The ventricles are normal in size and position without evidence of hydrocephalus. Mild paranasal sinus mucosal thickening. The visualized portions of the mastoids are unremarkable. The orbits appear normal. Normal flow voids are demonstrated in the carotid arteries and basilar artery. There is no abnormal contrast enhancement. IMPRESSION: 1. No acute intracranial abnormality. 2. No acute abnormality of the orbits. 3. There is a 3 mm hypoattenuating focus in the anterior left lateral aspect of the pituitary. Differentials include pituitary microadenoma or pars intermedia cyst. Pituitary protocol MRI can be obtained for further evaluation if clinically indicated. Dictated by: Olvin Jon D.O. The radiology attending physician has personally reviewed this study, and had reviewed and/or edited this written report and agrees with it. Electronically signed by: Jess Serrano M.D. Tj Silva MD [facility] MRI PROCEDURES Final Result * MRI Orbit W WO Contrast (05/30/2024 6:09 PM CDT) Anatomical Region Laterality Modality Head and Neck N/A Magnetic Resonan ce 05/31/2024 10:0 6 AM CDT Impressions 05/31/2024 10:58 AM CDT 1. No acute intracranial abnormality. 2. No acute abnormality of the orbits. 3. There is a 3 mm hypoattenuating focus in the anterior left lateral aspect of the pituitary. Differentials include pituitary microadenoma or pars intermedia cyst. Pituitary protocol MRI can be obtained for further evaluation if clinically indicated. Dictated by: Olvin Jon D.O. The radiology attending physician has personally reviewed this study, and had reviewed and/or edited this written report and agrees with it. Electronically signed by: Jess Serrano M.D. Narrative 05/31/2024 10:58 AM CDT EXAMINATION: 1. Magnetic resonance imaging (MRI) of the brain and brainstem without and with contrast 2. Magnetic resonance imaging (MRI) of the orbits without and with contrast HISTORY: 43 years-old Male with Stroke, follow up. TECHNIQUE: Multiplanar multi-weighted MRI of the brain and brainstem was performed without and with intravenous contrast using the general brain protocol. Multiplanar multi-weighted MRI of the orbits was performed without and with intravenous contrast using the standard protocol. This included multiplanar high resolution imaging of the orbits and optic nerves. Contrast information: 16 mL Gadoterate Meglumine IV COMPARISON: MRI brain 07/10/2023. FINDINGS: ORBITS: Both globes are normal in shape and outline without proptosis. The extraocular muscles are normal in size. No intra- or extraconal masses are present. The intraconal fat is normal. The orbital fernández are intact. The lacrimal glands are normal in appearance. Meckel's cave appears normal on each side. The carotid artery flow voids are normal. The optic nerves and optic chiasm are normal. The suprasellar cistern is normal. There is no abnormal contrast enhancement. BRAIN: The scalp and calvarium are normal. The superior sagittal sinus demonstrates normal venous flow. The corpus callosum is normal in shape and signal intensity. The posterior fossa is unremarkable. There is a 3 mm hypoattenuating focus within the left anterior pituitary (series 5009, image 85; series 18, image 31). The brainstem and craniocervical junction are unremarkable. Diffusion weighted images reveal no hyperintensities to suggest acute cerebral infarction. The susceptibility weighted sequences reveal no evidence of acute or chronic hemorrhage. The ventricles are normal in size and position without evidence of hydrocephalus. Mild paranasal sinus mucosal thickening. The visualized portions of the mastoids are unremarkable. The orbits appear normal. Normal flow voids are demonstrated in the carotid arteries and basilar artery. There is no abnormal contrast enhancement. Procedure Note Jess Serrano MD - 05/31/2024 EXAMINATION: 1. Magnetic resonance imaging (MRI) of the brain and brainstem without and with contrast 2. Magnetic resonance imaging (MRI) of the orbits without and with contrast HISTORY: 43 years-old Male with Stroke, follow up. TECHNIQUE: Multiplanar multi-weighted MRI of the brain and brainstem was performed without and with intravenous contrast using the general brain protocol. Multiplanar multi-weighted MRI of the orbits was performed without and with intravenous contrast using the standard protocol. This included multiplanar high resolution imaging of the orbits and optic nerves. Contrast information: 16 mL Gadoterate Meglumine IV COMPARISON: MRI brain 07/10/2023. FINDINGS: ORBITS: Both globes are normal in shape and outline without proptosis. The extraocular muscles are normal in size. No intra- or extraconal masses are present. The intraconal fat is normal. The orbital fernández are intact. The lacrimal glands are normal in appearance. Meckel's cave appears normal on each side. The carotid artery flow voids are normal. The optic nerves and optic chiasm are normal. The suprasellar cistern is normal. There is no abnormal contrast enhancement. BRAIN: The scalp and calvarium are normal. The superior sagittal sinus demonstrates normal venous flow. The corpus callosum is normal in shape and signal intensity. The posterior fossa is unremarkable. There is a 3 mm hypoattenuating focus within the left anterior pituitary (series 5009, image 85; series 18, image 31). The brainstem and craniocervical junction are unremarkable. Diffusion weighted images reveal no hyperintensities to suggest acute cerebral infarction. The susceptibility weighted sequences reveal no evidence of acute or chronic hemorrhage. The ventricles are normal in size and position without evidence of hydrocephalus. Mild paranasal sinus mucosal thickening. The visualized portions of the mastoids are unremarkable. The orbits appear normal. Normal flow voids are demonstrated in the carotid arteries and basilar artery. There is no abnormal contrast enhancement. IMPRESSION: 1. No acute intracranial abnormality. 2. No acute abnormality of the orbits. 3. There is a 3 mm hypoattenuating focus in the anterior left lateral aspect of the pituitary. Differentials include pituitary microadenoma or pars intermedia cyst. Pituitary protocol MRI can be obtained for further evaluation if clinically indicated. Dictated by: Ovlin Jon D.O. The radiology attending physician has personally reviewed this study, and had reviewed and/or edited this written report and agrees with it. Electronically signed by: Jess Serrano M.D. Tj Silva MD [facility] MRI PROCEDURES Final Result * Neuro CT Outside Reference (04/13/2024 8:59 AM DYNAMOMETER TESTER ENGINE) Impressions RAD_PACS_[facility] - 04/13/2024 8:59 AM DYNAMOMETER TESTER ENGINE These images are for Reference purposes only and have not been reviewed by [facility] Radiology. There will be no report generated by a [facility] Radiologist. Narrative RAD_PACS_[facility] - 04/13/2024 8:59 AM DYNAMOMETER TESTER ENGINE EXAMINATION: Images For Reference Purposes Only Hai Yoon MD IMG CT PROCEDURES Final Re sult Performing Organization Address [facility] de Phone Number RAD_PACS_[facility] * Neuro CT Outside Reference (04/13/2024 8:50 AM DYNAMOMETER TESTER ENGINE) Impressions RAD_PACS_[facility] - 04/13/2024 8:50 AM DYNAMOMETER TESTER ENGINE These images are for Reference purposes only and have not been reviewed by [facility] Radiology. There will be no report generated by a [facility] Radiologist. Narrative RAD_P[facility] - 04/13/2024 8:50 AM DYNAMOMETER TESTER ENGINE EXAMINATION: Images For Reference Purposes Only Hai Yoon MD IMG CT PROCEDURES Final Re sult Performing Organization Address [facility] [place] [facility] de Phone Number [email or web address] * Neuro MR Outside Reference (04/13/2024 8:47 AM DYNAMOMETER TESTER ENGINE) Impressions [facility] - 04/13/2024 8:47 AM DYNAMOMETER TESTER ENGINE These images are for Reference purposes only and have not been reviewed by [facility] Radiology. There will be no report generated by a [facility] Radiologist. Narrative [facility] - 04/13/2024 8:47 AM DYNAMOMETER TESTER ENGINE EXAMINATION: Images For Reference Purposes Only Hai Yoon MD IMG MRI PROCEDURES Final R esult Performing Organization Address [facility] [place] [facility] de Phone Number [facility]_[email or web address] * OCT, Retina - OU - Both Eyes (03/29/2024 12:08 PM DYNAMOMETER TESTER ENGINE) Anatomical Region Laterality Modality Head Optical Coherenc e Tomography Narrative 03/29/2024 12:08 PM DYNAMOMETER TESTER ENGINE Right Eye Quality was good. Scan locations included subfoveal. Progression has no prior data. Findings include normal observations. Left Eye Quality was good. Scan locations included subfoveal. Progression has no prior data. Findings include normal observations. Hillary Richardson OD OPHTH TOMOGRAPHY Final Res ult * OCT, Optic Nerve - OU - Both Eyes (03/29/2024 12:07 PM DYNAMOMETER TESTER ENGINE) Anatomical Region Laterality Modality Head Optical Coherenc e Tomography Narrative 03/29/2024 12:07 PM DYNAMOMETER TESTER ENGINE Right Eye Reliability was good. Temporal thickness was normal. Superior thickness was normal. Nasal thickness was normal. Inferior thickness was normal. Left Eye Reliability was good. Temporal thickness was normal. Superior thickness was normal. Nasal thickness was normal. Inferior thickness was normal. Hillary Richardson OD OPHTH TOMOGRAPHY Final Res ult from Last 3 Mon[address] [facility] CHOICE PLUS [facility] HMO/PPO Address: [facility] [address] [place] [address] [facility] CHOICE [facility] HMO/PPO Address: [place] [address] Advance Directives For more information, please contact: [phone] * Full Code (Latest Code Status on File) Date Activated Date Inactivated Comments 08/11/2023 9:43 AM 08/11/2023 6:12 PM Care Teams Tawer Relationship Specialty Start Date End Date Varsha Arenas MD [address] [place] [address] PCP - General Family Medicine 09/01/23 Alexandr Lan MD [address] [address] Consulting Physician Cardiovascular Disease 07/22/23
--- OUTSIDE RECORDS SUMMARY | 2024-06-07 00:27 | XMS_ITS | Clinical Summary ---
Author Organization [facility] Address [address] [place] [address] Care Team Providers Care Baseball Coach Name Role Phone Alexandr Lan MD Unavailable [phone] Varsha Arenas MD Primary Care Provider [phone] Allergies No known active allergies Medications aspirin 81 mg enteric coated tablet Take 1 tablet (81 mg total) by mouth daily 4 07/22/19 Active clopidogreL (PLAVIX) 75 mg tablet Take [...] 03/29/2024 Assessment & Plan (03/29/2024 12:07 PM INSPECTOR ASSEMBLIES AND INSTALLATIONS): Visual field (VF) full on confrontation Normal RNFL, ganglion cell layer (GCL), and macular thickness OU RTC for baseline HVF Cerebrovascular accident (CV A) due to embolism of cerebral artery 07/15/2023 Patent foramen ovale 07/15/2023 Lentigo 10/05/2012 Capillary hemangioma of skin 10/05/2012 Acne 10/05/2012 Encounters Date Type Department Care Team Description 05/31/2024 Telephone [facility] Cardiology [address] [place] [address] Alexandr Lan MD 05/30/2024 4:36 PM CDT - 05/30/2024 11:59 PM CDT Hospital Encounter [facility] [address] [place] [address] Tj Silva MD Cerebrovascular accident (CVA) due to embolism of cerebral artery (HCC) Discharge Disposition: Discharge to home or self care 05/26/2024 Telephone [facility] Cardiology [address] [place] [address] Alexandr Lan MD 05/08/2024 8:30 AM INSPECTOR ASSEMBLIES AND INSTALLATIONS Office Visit [facility] Stroke [address] [facility] [address] [place] [address] Tj Silva MD Cerebrovascular accident (CVA) due to embolism of cerebral artery (HCC) 04/13/2024 8:59 AM INSPECTOR ASSEMBLIES AND INSTALLATIONS - 04/13/2024 11:59 PM INSPECTOR ASSEMBLIES AND INSTALLATIONS Hospital Encounter [facility]) [address] [place] [address] Discharge Disposition: Discharge to home or self care 04/13/2024 8:50 AM INSPECTOR ASSEMBLIES AND INSTALLATIONS - 04/13/2024 11:59 PM INSPECTOR ASSEMBLIES AND INSTALLATIONS Hospital Encounter [facility]) [address] [place] [address] Discharge Disposition: Discharge to home or self care 04/13/2024 8:47 AM INSPECTOR ASSEMBLIES AND INSTALLATIONS - 04/13/2024 11:59 PM INSPECTOR ASSEMBLIES AND INSTALLATIONS Hospital Encounter [facility] [address] [place] [address] Discharge Disposition: Discharge to home or self care 03/31/2024 Telephone [facility] Scheduling [address] [place] [address] Meeta Hollingsworth 03/29/2024 8:15 AM INSPECTOR ASSEMBLIES AND INSTALLATIONS Office Visit [facility] [address] [facility] [address] [place] [id number] Hillary Richardson, OD Visual disturbance (Primary Dx); Patent foramen ovale; Cerebrovascular accident (CVA) due to embolism of cerebral artery (HCC) 03/23/2024 Telephone [facility] Ophthalmology [facility] [place] [address] Hillary Richardson, OD FYI from Last 3 Months Surgical History Surgery Date Site/Laterality Comments TONSILLECTOMY VASECTOMY OTHER SURGICAL HISTORY wart removal PATENT FORAMEN OVALE CLOSURE Medical History Medical History Date Comments Stroke (HCC) Family History Medical History Relation Name Comments Leukemia Brother Atrial fibrillation Father Zeeshan Cancer Father Zeeshan Hypertension Mother Agnes Atrial fibrillation Paternal Grandfather Leukemia Paternal Grandfather Glaucoma Neg Hx Macular degeneration Neg Hx Relation Name Status Comments Brother Father Zeeshan Mother Agnes Paternal Grandfather Social History Tobacco Use Types Packs/Day Years [...] on file Legal Sex Male 7:22 AM INSPECTOR ASSEMBLIES AND INSTALLATIONS Gender Identity Not on file Sexual Orientation Not on file Obstetrics History Last Filed Vital Signs Vital Sign Reading Time Taken Comments Blood Pressure 133/82 05/08/2024 8:00 AM INSPECTOR ASSEMBLIES AND INSTALLATIONS Pulse 65 05/08/2024 8:00 AM INSPECTOR ASSEMBLIES AND INSTALLATIONS Temperature 36.7 C (98.1 F) 08/11/2023 6:50 AM CDT Respiratory Rate 21 08/11/2023 11:50 AM CDT Oxygen Saturation 99% 12/08/2023 8:05 AM CDT Inhaled Oxygen Concentration - - Weight 83.9 kg (185 lb) 05/30/2024 4:44 PM CDT Height 185.4 cm (6' 1 ) 05/30/2024 4:44 PM CDT Body Mass Index 24.41 05/30/2024 4:44 PM CDT Plan of Treatment Health Maintenance Due Date Last Done Comments Depression Screening 1981 Hepatitis C Screening 1981 Regular Well Visit/Exam 18-64 06/23/1999 Pneumococcal vaccine <65 (1 of 2 - PCV) 2000 Varicella Vaccines (1 of 2 - 13+ 2-dose series) 02/03/2007 Covid-19 Vaccine (4 - 2023- season) 2023 12/17/2020, 03/25/2020, 03/04/2020 Influenza Vaccine (#1) 2023 , 12/12/2020, 01/06/2007, Additional history exists DTaP/Tdap/Td Vaccine (2 - Td or Tdap) 05/10/2027 05/10/2017, 08/08/2002, 07/26/2002 Hepatitis B Screening Completed 04/26/2006 , 08/08/2002, 07/26/2002 HPV Vaccines Aged Out No longer eligi ble based on patient's age to complete this topic Medical Devices Implanted Type 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 [employer] Device Identifier Shelf Expiration Date Model / Serial / Lot [employer] 30mm Soft Wire Frame Fluoroscopic Image Septal Occluder [id number] - [id number] - [id number] Implanted:Qty: 1 on 08/11/2023 by Abdirahman Weber MD PhD at [facility] Septal Defect Closure Device N/A: Atrial Septal Defect Wl [employer] 04/08/2025 [id number] / [id number] / Description:3T or less first level [employer] Device Clsr Perclose Prostyle Sut-Mediatd Closure-Repair Sys [id number] - [id number] - [id number] Implanted:Qty: 1 on 08/11/2023 by Abdirahman Weber MD PhD at [facility] Vascular Closure Device Right: Femoral Vein [employer] 04/14/2025 [id number] / [id number] / [id number] [employer] Device Clsr Perclose Prostyle Sut-Mediatd Closure-Repair Sys [id number] - [id number] - [id number] Implanted:Qty: 1 on 08/11/2023 by Abdirahman Weber MD PhD at [facility] Vascular Closure Device Left: Femoral Vein [employer] 04/14/2025 [id number] / [id number] / [id number] Procedures Procedure Name Priority Date/Time Associated Diagnosis [...] CT OUTSIDE REFERENCE Routine 04/13/2024 8:59 AM INSPECTOR ASSEMBLIES AND INSTALLATIONS NEURO CT OUTSIDE REFERENCE Routine 04/13/2024 8:50 AM INSPECTOR ASSEMBLIES AND INSTALLATIONS NEURO MR OUTSIDE REFERENCE Routine 04/13/2024 8:47 AM INSPECTOR ASSEMBLIES AND INSTALLATIONS OCT, RETINA - OU - BOTH EYES Routine 03/29/2024 12:08 PM INSPECTOR ASSEMBLIES AND INSTALLATIONS Visual disturbance OCT, OPTIC NERVE - OU - BOTH EYES Routine 03/29/2024 12:07 PM INSPECTOR ASSEMBLIES AND INSTALLATIONS Visual disturbance from Last 3 Months Results [...] evaluation if clinically indicated. Dictated by: Olvin Herndier, D.O. The radiology attending physician has personally [...] by: Jess Serrano M.D. Tj Silva MD [facility] MRI PROCEDURES Final Result * MRI Orbit [...] by: Jess Serrano M.D. Tj Silva MD IMG MRI PROCEDURES Final Result * Neuro CT Outside Reference (04/13/2024 8:59 AM INSPECTOR ASSEMBLIES AND INSTALLATIONS) Impressions [facility] - 04/13/2024 8:59 AM INSPECTOR ASSEMBLIES AND INSTALLATIONS These images are for Reference purposes only and have not been reviewed by [facility] Radiology. There will be no report generated by a [facility] Radiologist. Narrative [facility] - 04/13/2024 8:59 AM INSPECTOR ASSEMBLIES AND INSTALLATIONS EXAMINATION: Images For Reference Purposes Only Hai Yoon MD IM CT PROCEDURES Final Re sult [facility] * Neuro CT Outside Reference (04/13/2024 8:50 AM INSPECTOR ASSEMBLIES AND INSTALLATIONS) Impressions [facility] - 04/13/2024 8:50 AM INSPECTOR ASSEMBLIES AND INSTALLATIONS These images are for Reference purposes only and have not been reviewed by [facility] Radiology. There will be no report generated by a [facility] Radiologist. Narrative [facility] - 04/13/2024 8:50 AM INSPECTOR ASSEMBLIES AND INSTALLATIONS EXAMINATION: Images For Reference Purposes Only Hai Yoon MD IMG CT PROCEDURES Final Re sult Performing Organization Address [facility] Co de Phone Number [email or web address] * Neuro MR Outside Reference (04/13/2024 8:47 AM INSPECTOR ASSEMBLIES AND INSTALLATIONS) Impressions [facility] - 04/13/2024 8:47 AM INSPECTOR ASSEMBLIES AND INSTALLATIONS These images are for Reference purposes only and have not been reviewed by [facility] Radiology. There will be no report generated by a [facility] Radiologist. Narrative [facility] - 04/13/2024 8:47 AM INSPECTOR ASSEMBLIES AND INSTALLATIONS EXAMINATION: Images For Reference Purposes Only Hai Yoon MD IMG MRI PROCEDURES Final R esult Performing Organization Address [facility] de Phone Number [email or web address] * OCT, Retina - OU - Both Eyes (03/29/2024 12:08 PM INSPECTOR ASSEMBLIES AND INSTALLATIONS) Anatomical Region Laterality Modality Head Optical Coherenc e Tomography Narrative 03/29/2024 12:08 PM INSPECTOR ASSEMBLIES AND INSTALLATIONS Right Eye Quality was good. Scan locations included subfoveal. Progression has no prior data. Findings include normal observations. Left Eye Quality was good. Scan locations included subfoveal. Progression has no prior data. Findings include normal observations. Hillary Richardson OD OPHTH TOMOGRAPHY Final Res ult * OCT, Optic Nerve - OU - Both Eyes (03/29/2024 12:07 PM INSPECTOR ASSEMBLIES AND INSTALLATIONS) Anatomical Region Laterality Modality Head Optical Coherenc e Tomography Narrative 03/29/2024 12:07 PM INSPECTOR ASSEMBLIES AND INSTALLATIONS Right Eye Reliability was good. Temporal thickness was normal. Superior thickness was normal. Nasal thickness was normal. Inferior thickness was normal. Left Eye Reliability was good. Temporal thickness was normal. Superior thickness was normal. Nasal thickness was normal. Inferior thickness was normal. Result [facility] Hillary Richardson OD OPHTH TOMOGRAPHY Final Res ult from Last 3 Months Insurance [facility] [employer] Advance Directives For more information, please contact: [phone] * Full Code (Latest Code Status on File) Date Activated Date Inactivated Comments 08/11/2023 9:43 AM 08/11/2023 6:12 PM Care Teams Baseball Coach Relationship Specialty Start Date End Date Varsha Arenas MD [address] [place] [address] PCP - General Family Medicine 09/01/23 Alexandr Lan MD [address] [place] [address] Consulting Physician Cardiovascular Disease 07/22/23
--- OUTSIDE RECORDS SUMMARY | 2024-06-07 00:27 | XMS_ITS | Clinical Summary ---
Author Organization [facility] Address [address] [place] [address] Care Team Providers Care Body Welder Name Role Phone Varsha Arenas MD Primary Care Provider [phone] Medications ibuprofen (MOTRIN) 200 MG tablet Take 400 mg by mouth as needed. Active Active Problems Problem Noted Date Diagnosed Date Syncope 03/25/2022 Palpitations 03/25/2022 2nd degree AV block 03/25/2022 Family History Medical History Relation Comments Atrial fibrillation Father CHF Father Leukemia Father Open Heart Maternal Grandfather Relation Status Comments Brother 1 Alive Brother 2 Alive Father Maternal Grandfather Maternal Grandmother Mother Alive Paternal Grandfather Paternal Grandmother Sister Alive Social History Tobacco Use Types Packs/Day Years Used Date Smoking Tobacco: Never Smokeless Tobacco: Never Tobacco Cessation:Counseling Given: Not Answered Alcohol Use Standard Drinks/Week Comments Yes 2 (1 standard drink = 0.6 oz pur e alcohol) Sex and Gender Information Value Date Recorded Sex Assigned at Not on file Legal Sex Male 7:12 PM CDT Gender Identity Not on file Sexual Orientation Not on file 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 Not on file Not on file Not on file Last Filed Vital Signs Vital Sign Reading Time Taken Comments Blood Pressure 112/74 09/28/2022 10:12 AM CDT Pulse 58 09/28/2022 10:12 AM CDT Temperature - - Respiratory Rate - - Oxygen Saturation 99% 09/28/2022 10: 12 AM CDT Inhaled Oxygen Concentration - - Weight 83.4 kg (183 lb 12.8 oz) 023 10:12 AM CDT Height 185.4 cm (6' 1 ) 09/28/2022 10:1 2 AM CDT Body Mass Index 24.25 09/28/2022 10:12 AM CDT Plan of Treatment Health Maintenance Due Date Last Done Comments Annual Physical 1984 Hepatitis C 06/23/1999 Hepatitis B Vaccines (3 of 3 - 19+ 3-dose series) 06/21/2006 04/26/2006, 08/08/2002, 07/26/2002 COVID-19 Vaccine ( season) 2023 01/13/2022, 09/23/2021, 12/17/2020, Additional history exists Influenza Adult (#1) 2023 11/27/2021, 12/12/2020, 01/06/2007, Additional history exists DTaP, Tdap and Td Vaccines (2 - Td or Tdap) 05/10/2027 05/10/2017, 08/08/2002, 07/26/2002 Meningococcal Vaccine Aged Out 08/08/2002, 003 No longer eligible based on patient's age to complete this topic HPV Vaccines Aged Out No longer eligi ble based on patient's age to complete this topic Meningococcal B Vaccine Aged Out No l onger eligible based on patient's age to complete this topic Pneumococcal Vaccine: Pediatrics (0 to 5 Years) and At-Risk Patients (6 to 64 Years) Aged Out No longer eligible based on patient's age to complete this topic RSV Immunizations Under 20 Months Aged Out No longer eligible based on patient's age to complete this topic Insurance [place] [address] [facility] Care Teams Body Welder Relationship Specialty Start Date End Date Varsha Arenas MD [address] [place] [address] PCP - General FAMILY PRACTICE 02/17/22
--- OUTSIDE RECORDS SUMMARY | 2024-06-07 00:27 | XMS_ITS | Clinical Summary ---
Author Organization [facility] Address [address] [place] [address] Care Team Providers Care Oncologist Name Role Phone [facility], [facility] Abdirahman Murguia Primary Care Pr ovider Source Comments [facility],non-owned Affiliates and Associated Physician Practices is amultiple site organization consisting of ambulatory clinics and hospital sitesin [place] and [place]. This disclosure is being madepursuant to the Care Everywhere program and may not contain all information available regarding this patient. Last updated 17.[facility] Allergies No known active allergies Medications * Be aware that medications may not be up to date on this document. Alwaysverify current medications with the patient. Medication Sig Dispensed Refills Start Date End Date Status atorvastatin (Lipitor) 40 MG tablet Take 1 (one) tablet by mouth once daily 09/01/2023 Active aspirin EC (Ecotrin) 81 MG tablet TAKE ONE TABLET BY MOUTH ONCE A DAY TAKE WITH FOOD. 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 (A FLURIA, FLUZONE QUADRIVALENT; 6MO+) (IIV4) 04/26/2006,12/28/2002 MENINGOCOCAL MENINGITIS 08/08/2002,07/26/2002 MMR 08/08/2002,07/26/2002 POLIO IPV 08/08/2002,07/26/2002 SMALLPOX (VACCINIA) VACCINE, LIVE 10/02/2006 TDAP (7yrs+) 05/10/2017 TYPHOID IM 08/03/2006 Td (Adult), 2 Lf Tetanus Tox oid, Adsorbed, Pf 08/08/2002,07/26/2002 Family History Medical History Relation Name Comments Other - Cardiac Brother 1 PFO Sleep Disorder - Sleep apnea Brother 2 Colon polyps Brother 3 Nephrolithiasis Brother 3 Sleep Disorder - Sleep apnea Brother 3 None Known Brother 4 None Known Brother 5 Diabetes - Type 2 Father Leukemia Father Other - Cardiac Father atrial fibri llation Sleep Disorder - Sleep apnea Father Other - Cardiac Maternal Grandfather CAD Cancer - Colon Maternal Grandmother in he r 90's Dementia Maternal Grandmother Hypertension Mother Thyroid Disease Mother low Leukemia Paternal Grandfather Other - Cardiac Paternal Grandfather atri al fibrillation None Known Sister Relation Name Status Comments Brother 1 Alive Brother 2 Alive Brother 3 Alive Brother 4 Alive Brother 5 Alive Father Maternal Grandfather Maternal Grandmother Mother Alive Paternal Grandfather Paternal Grandmother Sister Alive Social History Tobacco Use Types Packs/Day Years Used Date Smoking Tobacco: Never Smokeless Tobacco: Never Tobacco Cessation:Counseling Given: Yes PHQ-2 Answer Date Recorded Patient Health Questionnaire-2 Score 0 02/22/2023 Sex and Gender Information Value Date Recorded Sex Assigned at Not on file Gender Identity Not on file Sexual Orientation Not on file Last Filed Vital Signs Vital Sign Reading Time Taken Comments Blood Pressure 116/78 12/16/2023 9:17 AM CDT Pulse 64 12/16/2023 9:17 AM CDT Temperature - - Respiratory Rate 14 12/16/2023 9:17 AM CDT Oxygen Saturation 98% 12/16/2023 9:17 AM CDT Inhaled Oxygen Concentration - - Weight 85.2 kg (187 lb 12.8 oz) 12/16/2023 9:17 AM CDT Height 182.9 cm (6') 12/16/2023 9:17 AM CDT Body Mass Index 25.47 12/16/2023 9:17 AM CDT Plan of Treatment Health Maintenance Due Date Last Done Comments HIV SCREENING 1996 HEPATITIS B VACCINE (3 of 3 - 19+ 3-dose series) 06/21/2006 04/26/2006, 08/08/2002, 07/26/2002 COVID-19 VACCINE ( season) 2023 01/13/2022, 09/23/2021, 12/17/2020, Additional history exists INFLUENZA VACCINE (#1) 2023 1, 01/06/2007, 04/26/2006, Additional history exists DEPRESSION SCREENING 03/15/2024 02/23/2023, 12/18/19 22 SCREENING FOR DIABETES 11/30/2026 4, 01/05/2023, 12/03/2021, Additional history exists DTAP/TDAP/TD VACCINES (2 - Td or Tdap) 05/10/2027 05/10/2017, 08/08/2002, 07/26/2002 ZOSTER VACCINE (1 of 2) 06/23/2031 MENINGOCOCCAL GROUPS A/C/Y/W VACCINE Aged Out 08/08/2002, 07/26/2002 No longer eligibl e based on patient's age to complete this topic HEPATITIS C SCREENING Completed 12/03/2021 HIB VACCINE Aged Out No longer eligi ble based on patient's age to complete this topic HPV VACCINE Aged Out No longer eligi ble based on patient's age to complete this topic MENINGOCOCCAL (Group B) VACCINE SHARED DECISION-MAKING Aged Out No longer eligible based on patient's age to complete this topic PNEUMOCOCCAL VACCINE Aged Out No long er eligible based on patient's age to complete this topic Procedures Procedure Name Priority Date/Time Associated Diagnosis Comments COMPREHENSIVE METABOLIC PANEL Routine 12/01/2023 6:45 AM CDT Annual physical exam - [facility] HEPATITIS C ANTIBODY Routine 12/03/2021 7:44 AM CDT Annual physical exam - [facility] from Last 3 Months or Most Recently Relevant to Health Maintenance Results * COMPREHENSIVE METABOLIC PANEL (12/01/2023 6:45 AM CDT) Glucose 82 70 - 99 mg/dL [facility] ACCOUNT BILL BUN 16 6 - 24 mg/dL [facility] ACCOUNT BILL Creatinine 1.26 0.76 - 1.27 mg/dL [facility] ACCOUNT BILL eGFR by CKD-EPI 73 >59 mL/min/1.7 3 [facility] ACCOUNT BILL BUN/Creatinine Ratio 13 9 - 20 [facility] ACCOUNT BILL Sodium 140 134 - 144 mmol/L [facility] ACCOUNT BILL Potassium 3.7 3.5 - 5.2 mmol/L [facility] ACCOUNT BILL Chloride 101 96 - 106 mmol/L [facility] ACCOUNT BILL CO2 25 20 - 29 mmol/L [facility] ACCOUNT BILL Calcium 9.3 8.7 - 10.2 mg/dL [facility] ACCOUNT BILL Protein Total 6.5 6.0 - 8.5 g/dL [facility] ACCOUNT BILL Albumin 4.4 4.1 - 5.1 g/dL [facility] ACCOUNT BILL Globulin Total 2.1 1.5 - 4.5 g/dL [facility] ACCOUNT BILL Bilirubin Total 0.6 0.0 - 1.2 mg/dL [facility] ACCOUNT BILL Alkaline Phosphatase 78 44 - 121 IU/L [facility] ACCOUNT BILL AST 21 0 - 40 IU/L [facility] ACCOUNT BILL ALT 25 0 - 44 IU/L [facility] ACCOUNT BILL Blood BLOOD SPECIMEN / Unknown 12/01/2023 6:45 AM CDT 12/01/2023 Narrative [facility] ACCOUNT BILL - 12/02/2023 9:13 AM CDT Performed at: - [facility] [address] [place], [place] [id number] C D Still Operator: Jeffery Sanon PhD, Phone: [phone] Idalmis Andre MD LAB - CHEMISTRY BOB BERNAL Performing Organization Address City/[facility]/ZIP Co de Phone Number [facility] ACCOUNT BILL [address] [place] [address] * HEPATITIS C ANTIBODY (12/03/2021 7:44 AM CDT) Hepatitis C Antibody <0.1 0.0 - 0.9 s/co ratio [facility] ACCOUNT BILL Comment: Negative: < 0.8 Indeterminate: 0.8 - 0.9 Positive: > 0.9 . HCV antibody alone does not differentiate between previous resolved infection and active infection. The CDC and current clinical guidelines recommend that a positive HCV antibody result be followed up with an HCV RNA test to support the diagnosis of acute HCV infection. [facility] offers Hepatitis C Virus (HCV) RNA, Diagnosis, DARVIN (488013) and Hepatitis C Virus (HCV) Antibody with reflex to Quantitative Real-time PCR (270506). FASTING Blood BLOOD SPECIMEN / Unknown 12/03/2021 7:44 AM CDT 12/04/2021 Narrative Resulting Agency Comment Lab Testing performed at: [facility] [place] [address] [facility] [id number] Dejuan España MD LAB - CHEMISTRY BOB BERNAL Performing Organization Address [facility] Co de Phone Number [facility] ACCOUNT BILL [address] [place] [address] from Last 3 Months or Most Recently Relevant to Health Maintenance Care Teams Oncologist Relationship Specialty Start Date End Date [facility] Murguia [address] [place] [address] [facility] 01/07/21
--- OUTSIDE RECORDS SUMMARY | 2024-06-07 00:27 | XMS_ITS | Clinical Summary ---
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 Gender Identity Not on file Sexual Orientation Not on file Plan of Treatment Health Maintenance Due Date Last Done Comments Hepatitis C Virus (HCV) Screening 1981 TdaP Immunization 1981 Hepatitis B Immunization (1 of 3 - 19+ 3-dose series) 2000 Influenza Immunization (#1) 2023 12/12/2020 SARS-COV-2 Immunization ( season) 2023 12/17/2020, 03/25/2020, 03/04/2020 Respiratory Syncytial Virus (RSV) Immunization (Adult) (1 - 1-dose 75+ series) 2056 Meningococcal Immunization (ACWY) Aged Out No longer eligible b ased on patient's age to complete this topic Pneumococcal Immunization Combined Aged Out No longer eligible b ased on patient's age to complete this topic Rotavirus Immunization Aged Out No lo nger eligible based on patient's age to complete this topic
--- OUTSIDE RECORDS SUMMARY | 2024-06-07 00:27 | XMS_ITS | Encounter Summary ---
Author Organization [facility] Address [address] [place] [id number] Care Team Providers Care Custom Van Converter Name Role Phone Varsha Arenas MD Primary Care Provider [phone] Encounter Details Date Type Department Care Team (Late st Contact Info) Description 03/30/2022 Abstract [facility] [address] Brian Tabares MA Social History Tobacco Use Types Packs/Day Years Used Date Smoking Tobacco: Never Smokeless Tobacco: Never Alcohol Use Standard Drinks/Week Comments Yes 2 (1 standard drink = 0.6 oz pur e alcohol) Sex and Gender Information Value Date Recorded Sex Assigned at Not on file Legal Sex Male 7:12 PM CDT Gender Identity Not on file Sexual Orientation Not on file 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 encounter Plan of Treatment Not on file documented as of this encounter Procedures Procedure Name Priority Date/Time Associated Diagnosis Comments COMPREHENSIVE METABOLIC PANEL Routine 07/09/2023 LIPID PANEL Routine 07/09/2023 CBC, MANUAL DIFF Routine 07/09/2023 CBC (OUTSIDE LAB) Routine 01/13/2022 BASIC METABOLIC PANEL Routine 01/13/2022 LIPID PANEL Routine 01/13/2022 THYROID STIM HORMONE TSH Routine 01/13/2022 documented in this encounter Results * COMPREHENSIVE METABOLIC PANEL (07/09/2023) SODIUM S/P/B 138 GLUCOSE 96 mg/dL AST 28 BUN 15 CREATININE S/P/B 1.0 0.7 - 1.3 CALCIUM S/P/B 9.2 POTASSIUM S/P/B 3.7 CHLORIDE S/P/B 102 ALT 19 GFR ESTIMATE >60 Default History Genericprovider LABORATORY Final Result * LIPID PANEL (07/09/2023) CHOLESTEROL 151 TRIGLYCERIDES 171 HDL 37 LDL (CALCULATED) 96 Default History Genericprovider LABORATORY Final Result * CBC, MANUAL DIFF (07/09/2023) WBC 6.0 HGB 14.8 HCT 43.4 PLT 185 Default History Genericprovider LABORATORY Final Result * CBC (OUTSIDE LAB) (01/13/2022) WBC 5.8 HGB 15.4 HCT 44.3 PLT 201 01/13/2022 Default History Genericprovider LAB-OUTSIDE/ABST RACTED Final Result * THYROID STIM HORMONE, TSH (01/13/2022) TSH 1.313 01/13/2022 Default History Genericprovider LABORATORY Final Result * LIPID PANEL (01/13/2022) CHOLESTEROL 190 HDL 43 TRIGLYCERIDES 95 LDL (CALCULATED) 128 01/13/2022 us Default History Genericprovider LABORATORY Final Result * BASIC METABOLIC PANEL (01/13/2022) SODIUM S/P/B 139 POTASSIUM S/P/B 4.9 CO2 27 CHLORIDE S/P/B 103 GLUCOSE 93 mg/dL CALCIUM S/P/B 9.8 BUN 13 CREATININE S/P/B 1.25 0.7 - 1.3 EGFR NON-AFR. AMER. 74.7 <=90 01/13/2022 us Default History Genericprovider LABORATORY Final Result documented in this encounter Visit Diagnoses Not on filedocumented in this encounter Care Teams Custom Van Converter Relationship Specialty Start Date End Date Varsha Arenas MD [address] [place] [address] PCP - General FAMILY PRACTICE 02/17/22 documented as of this encounter
--- OUTSIDE RECORDS SUMMARY | 2024-06-07 00:27 | XMS_ITS | Continuity of Care Document ---
Author Name [facility] Organization [facility] Care Team Providers Care Jewelry Technician Name Role Phone [facility] Unavailable Unavailable Problems Combined list of problems from Department [facility] and [facility] Affairs facilities. It does not include entries that were removed or entered in error. 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 [facility] Diagnosis: ICD-10-CM R00.2 Palpitations Active Diagnosis [facility] Diagnosis: ICD-10-CM B07.9 Viral wart, unspecified Active Diagnosis [facility] Diagnosis: ICD-10-CM L57.0 Actinic keratosis Active Diagnosis [facility] Diagnosis: ICD-10-CM J98.4 Other disorders of lung Active Diagnosis [facility] Diagnosis: ICD-10-CM R53.82 Chronic fatigue, unspecified Active Diagnosis [facility] Medications Combined list of outpatient medications from [facility] and [facility] facilities.Medications provided include 1) outpatient medications from the last 15 months, and 2) patient-reported medications. Medication Details Route Status Patient Instructions Prescription Expires Prescription Number Last Dispense Date Ordering Provider Order Date Order Qty Source ASPIRIN 81MG TAB,EC TAKE ONE TABLET BY MOUTH ONCE A DAY TAKE WITH FOOD. ORAL ACTIVE 07/21/2024 [id number] DANAYNI DHI 2023 120 [facility] ATORVASTATI N CA 40MG TAB TAKE ONE TABLET BY MOUTH EVERY EVENING FOR HIGH CHOLESTE ROL NOTE TABLET STRENGTH /DIRECTI ONS CHANGE ORAL ACTIVE 04/18/2025 [id number] DANAY,NI DHI 2024 90 [facility] AT[place]STAT[place] N [place] 80MG TAB TAKE ONE-HALF TABLET BY MOUTH EVERY EVENING FOR HIGH CHOLESTE ROL ORAL DISCONT INUED 07/21/2024 [id number] DANAY,NI DHI 2023 45 [facility] SALICYLIC ACID 40% PLASTER APPLY PLASTER TO AFFECTED AREA(S) ONCE A DAY NEEDED FOR WART REMOVAL (EXTERNA L USE ONLY) TOPICA L ACTIVE 06/11/2024 [id number] NGONADI,N WANNEOMA N 2023 90 [facility] Immunizations Combined list of available immunizations from the Department of Defense and Veterans Affairs facilities. Immunization Series Date Given Administered By Site Reaction Lot Number CVX Code Drug Asset Protection Officer Status Comments Source COVID-19 (PFIZER), MRNA, LNP-S, BIVALENT BOOSTER, PF, 30 MCG/0.3 ML DOSE 1 2021 300 complet ed PFR; [id number]; 3 [facility] COVID-19 (PFIZER), MRNA, LNP-S, PF, 30 MCG/0.3 ML DOSE, VANCE-SUCROSE (AGES 12+ YEARS) 4 2021 217 complet ed PFR; [id number]; 2 [facility] COVID-19 (FreshPlanet), MRNA, LNP-S, PF, 30 MCG/0.3 ML DOSE 3 2020 208 complet ed [facility] COVID-19 ([employer]Plan[employer]), MRNA, LNP-S, PF, 30 MCG/0.3 ML DOSE 2 2020 208 complet ed [facility] COVID-19 ([employer]), MRNA, LNP-S, PF, 30 MCG/0.3 ML DOSE 1 2019 208 complet ed [facility] TDAP 2017 115 complet ed Right Deltoid [facility] Results Combined list of recent chemistry, hematology and other laboratory results from Department of Defense and Veterans Affairs, ranging from 15 months to all on record, depending upon the facility. Order Name Results Value Reference Range Date Interpretation Specimen Comments Source TSH (MA-PB) THYROTROPIN [UNITS/VOLU ME] IN SERUM OR PLASMA 1.043 u[IU]/ mL 0.47 - 5 02/23 Specimen Type: SERUM No comment entered. Ordering Provider: CYN JON I Report Released Date/Time: Feb 02, 2024 12:54 PM Reporting Lab: [facility] [address] [place] [phone] Performing Lab: [address] [address] [facility] MICRAL/CR EAT PROFILE (STL) ALBUMIN [MASS/VOLUM E] IN URINE <5.0mg /L 02/23 Specimen Type: URINE Comment: uALB/CREAT Ratio Unable to be calculated Unable to calculate due to Microalbumi n < 5.0 mg/L Ordering Provider: CYN JON I Report Released Date/Time: Feb 02, 2024 12:54 PM Reporting Lab: [address] [phone] Performing Lab: [address] [phone] [facility] MICRAL/CR EAT PROFILE (STL) ALBUMIN/CRE ATININE [MASS RATIO] IN URINE commen tmg/g 0 - 29 02/23 Specimen Type: URINE Comment: uALB/CREAT Ratio Unable to be calculated Unable to calculate due to Microalbumi n < 5.0 mg/L Ordering Provider: CYN JON I Report Released Date/Time: Feb 02, 2024 12:54 PM Reporting Lab: [facility] [address] [place] [phone] Performing Lab: [address] [address] [facility] MICRAL/CR EAT PROFILE (STL) CREATININE [MASS/VOLUM E] IN URINE 128.0 mg/dL 63 - 166 02/23 Specimen Type: URINE Comment: uALB/CREAT Ratio Unable to be calculated Unable to calculate due to Microalbumi n < 5.0 mg/L Ordering Provider: CYN JON I Report Released Date/Time: Feb 02, 2024 12:54 PM Reporting Lab: [facility] [address] [phone] Performing Lab: [facility] [address] [phone] [facility] HGA1C HEMOGLOBIN A1C/HEMOGLO BIN.TOTAL IN BLOOD 5.4 4.0 - 6.0 02/23 Specimen Type: BLOOD No comment entered. Ordering Provider: CYN JON I Report Released Date/Time: Feb 02, 2024 12:54 PM Reporting Lab: [facility] [address] [phone] Performing Lab: [facility] [address] [place] [phone] [facility] COMPREHEN SIVE METABOLIC PANEL CREATININE [MASS/VOLUM E] IN SERUM OR PLASMA 1.09 mg/dL 0.7 - 1.3 02/23 Specimen Type: PLASMA Comment: No hemolysis noted. Ordering Provider: CYN JON I Report Released Date/Time: Feb 02, 2024 12:54 PM Reporting Lab: [facility] [address] [place] [phone] Performing Lab: [facility] [address] [phone] [facility] COMPREHEN SIVE METABOLIC PANEL UREA NITROGEN [MASS/VOLUM E] IN SERUM OR PLASMA 15.2 mg/dL 9.0 - 25.0 02/23 Specimen Type: PLASMA Comment: No hemolysis noted. Ordering Provider: CYN JON I Report Released Date/Time: Feb 02, 2024 12:54 PM Reporting Lab: [facility] [address] [phone] Performing Lab: [facility] [address] [place] [phone] [facility] COMPREHEN SIVE METABOLIC PANEL GLUCOSE [MASS/VOLUM E] IN SERUM OR PLASMA 99 mg/dL 72 - 99 02/23 Specimen Type: PLASMA Comment: No hemolysis noted. Ordering Provider: DANAY,NIDH I Report Released Date/Time: Feb 02, 2024 12:54 PM Reporting Lab: [facility] [address] [phone] Performing Lab: [facility] [address] [phone] [facility] COMPREHEN SIVE METABOLIC PANEL SODIUM [MOLES/VOLU ME] IN SERUM OR PLASMA 140 meq/L 136 - 145 02/23 Specimen Type: PLASMA Comment: No hemolysis noted. Ordering Provider: CYN JON I Report Released Date/Time: Feb 02, 2024 12:54 PM Reporting Lab: [facility] [address] [place] [phone] Performing Lab: [facility] [address] [phone] [facility] COMPREHEN SIVE METABOLIC PANEL POTASSIUM [MOLES/VOLU ME] IN SERUM OR PLASMA 4.7 meq/L 3.5 - 5 02/23 Specimen Type: PLASMA Comment: No hemolysis noted. Ordering Provider: CYN JON I Report Released Date/Time: Feb 02, 2024 12:54 PM Reporting Lab: [facility] [address] [phone] Performing Lab: [facility] [address] [phone] [facility] COMPREHEN SIVE METABOLIC PANEL CHLORIDE [MOLES/VOLU ME] IN SERUM OR PLASMA 105 meq/L 98 - 107 02/23 Specimen Type: PLASMA Comment: No hemolysis noted. Ordering Provider: CYN JON I Report Released Date/Time: Feb 02, 2024 12:54 PM Reporting Lab: [facility] [address] [phone] Performing Lab: [facility] [address] [phone] [facility] COMPREHEN SIVE METABOLIC PANEL CARBON DIOXIDE, TOTAL [MOLES/VOLU ME] IN SERUM OR PLASMA 25 meq/L 22 - 31 02/23 Specimen Type: PLASMA Comment: No hemolysis noted. Ordering Provider: CYN JON I Report Released Date/Time: Feb 02, 2024 12:54 PM Reporting Lab: [facility] [address] [place], [place] [phone] Performing Lab: [facility] [address] [place] [phone] [facility] COMPREHEN SIVE METABOLIC PANEL CALCIUM [MASS/VOLUM E] IN SERUM OR PLASMA 9.5 mg/dL 8.4 - 10.4 02/23 Specimen Type: PLASMA Comment: No hemolysis noted. Ordering Provider: CYN JON I Report Released Date/Time: Feb 02, 2024 12:54 PM Reporting Lab: [facility] [address] [place], [place] [phone] Performing Lab: [facility] [address] [place], [place] [phone] COMPREHEN SIVE METABOLIC PANEL PROTEIN [MASS/VOLUM E] IN SERUM OR PLASMA 7.1 g/dL 6 - 8.6 02/23 Specimen Type: PLASMA Comment: No hemolysis noted. Ordering Provider: CYN JON I Report Released Date/Time: Feb 02, 2024 12:54 PM Reporting Lab: [facility] [address] [place] [phone] Performing Lab: [facility] [address] [place] [phone] [facility] COMPREHEN SIVE METABOLIC PANEL ALBUMIN [MASS/VOLUM E] IN SERUM OR PLASMA 4.4 g/dL 3.4 - 5 02/23 Specimen Type: PLASMA Comment: No hemolysis noted. Ordering Provider: CYN JON I Report Released Date/Time: Feb 02, 2024 12:54 PM Reporting Lab: [facility] [address] [place], [place] [phone] Performing Lab: [facility] [address] [place] [phone] [facility] COMPREHEN SIVE METABOLIC PANEL BILIRUBIN.T OTAL [MASS/VOLUM E] IN SERUM OR PLASMA 0.5 mg/dL 0.2 - 1.2 02/23 Specimen Type: PLASMA Comment: No hemolysis noted. Ordering Provider: CYN JON I Report Released Date/Time: Feb 02, 2024 12:54 PM Reporting Lab: [facility] [address] [phone] Performing Lab: [facility] [address] [place] [phone] [facility] COMPREHEN SIVE METABOLIC PANEL ALKALINE PHOSPHATASE [ENZYMATIC ACTIVITY/VO LUME] IN SERUM OR PLASMA 64 U/L 40 - 150 02/23 Specimen Type: PLASMA Comment: No hemolysis noted. Ordering Provider: CYN JON I Report Released Date/Time: Feb 02, 2024 12:54 PM Reporting Lab: [facility] [address] [place] [phone] Performing Lab: [facility] [address] [place] [phone] [facility] COMPREHEN SIVE METABOLIC PANEL ASPARTATE AMINOTRANSF ERASE [ENZYMATIC ACTIVITY/VO LUME] IN SERUM OR PLASMA 33 U/L 5 - 34 02/23 Specimen Type: PLASMA Comment: No hemolysis noted. Ordering Provider: CYN JON I Report Released Date/Time: Feb 02, 2024 12:54 PM Reporting Lab: [facility] [address] [place] [phone] Performing Lab: [facility] [address] [place] [phone] [facility] COMPREHEN SIVE METABOLIC PANEL ALANINE AMINOTRANSF ERASE [ENZYMATIC ACTIVITY/VO LUME] IN SERUM OR PLASMA 39 U/L 8 - 40 02/23 Specimen Type: PLASMA Comment: No hemolysis noted. Ordering Provider: CYN JON I Report Released Date/Time: Feb 02, 2024 12:54 PM Reporting Lab: [facility] [address] [place] [phone] Performing Lab: [facility] [address] [place] [phone] [facility] COMPREHEN SIVE METABOLIC PANEL GLOMERULAR FILTRATION RATE/1.73 SQ M.PREDICTED [VOLUME RATE/AREA] IN SERUM, PLASMA OR BLOOD BY CREATININE- BASED FORMULA (CKD-EPI 2020) 86.9 60 02/23 Specimen Type: PLASMA Comment: No hemolysis noted. Ordering Provider: CYN JON I Report Released Date/Time: Feb 02, 2024 12:54 PM Reporting Lab: [address] [phone] Performing Lab: [address] [phone] [place] [address] CBC LEUKOCYTES [#/VOLUME] IN BLOOD BY AUTOMATED COUNT 5.6 10*3/u L 3.6 - 11.2 02/23 Specimen Type: BLOOD No comment entered. Ordering Provider: CYN JON I Report Released Date/Time: Feb 02, 2024 12:54 PM Reporting Lab: [address] [phone] Performing Lab: [facility] [address] [place] [phone] [facility] CBC ERYTHROCYTE S [#/VOLUME] IN BLOOD BY AUTOMATED COUNT 4.89 10*6/u L 4.10 - 5.70 02/23 Specimen Type: BLOOD No comment entered. Ordering Provider: CYN JON I Report Released Date/Time: Feb 02, 2024 12:54 PM Reporting Lab: [facility] [address] [place] [phone] Performing Lab: [facility] [address] [place] [phone] [facility] CBC HEMOGLOBIN [MASS/VOLUM E] IN BLOOD 14.9 g/dL 13.1 - 16.8 02/23 Specimen Type: BLOOD No comment entered. Ordering Provider: CYN JON I Report Released Date/Time: Feb 02, 2024 12:54 PM Reporting Lab: [address] [phone] Performing Lab: [place] [phone] [facility] CBC HEMATOCRIT [VOLUME FRACTION] OF BLOOD 43.6 38.2 - 48.4 02/23 Specimen Type: BLOOD No comment entered. Ordering Provider: CYN JON I Report Released Date/Time: Feb 02, 2024 12:54 PM Reporting Lab: [address] [phone] Performing Lab: [address] [phone] [facility] CBC MCV [ENTITIC VOLUME] BY AUTOMATED COUNT 89.2 fL 80.0 - 100.0 02/23 Specimen Type: BLOOD No comment entered. Ordering Provider: CYN JON I Report Released Date/Time: Feb 02, 2024 12:54 PM Reporting Lab: [address] [phone] Performing Lab: [address] [phone] [facility] CBC MCH [ENTITIC MASS] BY AUTOMATED COUNT 30.5 pg 27.0 - 34.0 02/23 Specimen Type: BLOOD No comment entered. Ordering Provider: CYN JON I Report Released Date/Time: Feb 02, 2024 12:54 PM Reporting Lab: [address] [phone] Performing Lab: [address] [phone] [facility] CBC MCHC [MASS/VOLUM E] BY AUTOMATED COUNT 34.2 g/dL 33.0 - 36.0 02/23 Specimen Type: BLOOD No comment entered. Ordering Provider: CYN JON I Report Released Date/Time: Feb 02, 2024 12:54 PM Reporting Lab: [address] [phone] Performing Lab: [address] [phone] [facility] CBC PLATELETS [#/VOLUME] IN BLOOD BY AUTOMATED COUNT 180 10*3/u L 150 - 400 02/23 Specimen Type: BLOOD No comment entered. Ordering Provider: CYN JON I Report Released Date/Time: Feb 02, 2024 12:54 PM Reporting Lab: [facility] [address] [place] [phone] Performing Lab: [address] [phone] [facility] CBC PLATELET MEAN VOLUME [ENTITIC VOLUME] IN BLOOD BY AUTOMATED COUNT 10.0 fL 7.5 - 11.2 02/23 Specimen Type: BLOOD No comment entered. Ordering Provider: CYN JON I Report Released Date/Time: Feb 02, 2024 12:54 PM Reporting Lab: [address] [address] Performing Lab: [address] [phone] [place] [address] CBC ERYTHROCYTE DISTRIBUTIO N WIDTH [RATIO] BY AUTOMATED COUNT 11.9 11.8 - 15.1 02/23 Specimen Type: BLOOD No comment entered. Ordering Provider: CYN JON I Report Released Date/Time: Feb 02, 2024 12:54 PM Reporting Lab: [facility] [address] [place] [phone] Performing Lab: [address] [phone] [facility] CBC LYMPHOCYTES /100 LEUKOCYTES IN BLOOD BY AUTOMATED COUNT 35 02/23 Specimen Type: BLOOD No comment entered. Ordering Provider: CYN JON I Report Released Date/Time: Feb 02, 2024 12:54 PM Reporting Lab: [facility] [address] [place] [phone] Performing Lab: [address] [phone] [facility] CBC MONOCYTES/1 00 LEUKOCYTES IN BLOOD BY AUTOMATED COUNT 7 02/23 Specimen Type: BLOOD No comment entered. Ordering Provider: DANAY,NIDH I Report Released Date/Time: Feb 02, 2024 12:54 PM Reporting Lab: [facility] [address] [place] [phone] Performing Lab: [facility] [address] [place] [phone] [facility] CBC NEUTROPHILS /100 LEUKOCYTES IN BLOOD BY AUTOMATED COUNT 53 02/23 Specimen Type: BLOOD No comment entered. Ordering Provider: CYN JON I Report Released Date/Time: Feb 02, 2024 12:54 PM Reporting Lab: [facility] [address] [place] [phone] Performing Lab: [facility] [address] [place] [phone] [place] [address] CBC EOSINOPHILS /100 LEUKOCYTES IN BLOOD BY AUTOMATED COUNT 5 02/23 Specimen Type: BLOOD No comment entered. Ordering Provider: CYN JON I Report Released Date/Time: Feb 02, 2024 12:54 PM Reporting Lab: [facility] [address] [place] [phone] Performing Lab: [facility] [address] [place] [phone] [facility] CBC BASOPHILS/1 00 LEUKOCYTES IN BLOOD BY AUTOMATED COUNT 1 02/23 Specimen Type: BLOOD No comment entered. Ordering Provider: CYN JON I Report Released Date/Time: Feb 02, 2024 12:54 PM Reporting Lab: [facility] [address] [place] [phone] Performing Lab: [facility] [address] [place] [phone] [facility] CBC LYMPHOCYTES [#/VOLUME] IN BLOOD BY AUTOMATED COUNT 1.92 10*3/u L 0.77 - 4.50 02/23 Specimen Type: BLOOD No comment entered. Ordering Provider: CYN JON I Report Released Date/Time: Feb 02, 2024 12:54 PM Reporting Lab: [facility] [address] [place] [phone] Performing Lab: [facility] [address] [phone] [facility] CBC MONOCYTES [#/VOLUME] IN BLOOD BY AUTOMATED COUNT 0.37 10*3/u L 0.19 - 0.80 02/23 Specimen Type: BLOOD No comment entered. Ordering Provider: CYN JON I Report Released Date/Time: Feb 02, 2024 12:54 PM Reporting Lab: [facility] [address] [place] [phone] Performing Lab: [facility] [address] [place] [phone] [facility] CBC NEUTROPHILS [#/VOLUME] IN BLOOD BY AUTOMATED COUNT 2.95 10*3/u L 2.10 - 8.00 02/23 Specimen Type: BLOOD No comment entered. Ordering Provider: CYN JON I Report Released Date/Time: Feb 02, 2024 12:54 PM Reporting Lab: [facility] [address] [place] [phone] Performing Lab: [facility] [address] [place] [phone] [facility] CBC EOSINOPHILS [#/VOLUME] IN BLOOD BY AUTOMATED COUNT 0.27 10*3/u L 0.00 - 0.60 02/23 Specimen Type: BLOOD No comment entered. Ordering Provider: CYN JON I Report Released Date/Time: Feb 02, 2024 12:54 PM Reporting Lab: [facility] [address] [place] [phone] Performing Lab: [facility] [address] [place] [phone] [facility] CBC BASOPHILS [#/VOLUME] IN BLOOD BY AUTOMATED COUNT 0.05 10*3/u L 0.00 - 0.20 02/23 Specimen Type: BLOOD No comment entered. Ordering Provider: CYN JON I Report Released Date/Time: Feb 02, 2024 12:54 PM Reporting Lab: [facility] [address] [place] [phone] Performing Lab: [facility] [address] [facility] [place] [phone] [facility] LIPID PANEL (STL) CHOLESTEROL [MASS/VOLUM E] IN SERUM OR PLASMA 120 mg/dL 0 - 200 02/23 Specimen Type: PLASMA Comment: No hemolysis noted. Ordering Provider: CYN JON I Report Released Date/Time: Feb 02, 2024 12:54 PM Reporting Lab: [facility] [address] [place] [phone] Performing Lab: [facility] [address] [place] [phone] [facility] LIPID PANEL (STL) TRIGLYCERID E [MASS/VOLUM E] IN SERUM OR PLASMA 57 mg/dL 0 - 150 02/23 Specimen Type: PLASMA Comment: No hemolysis noted. Ordering Provider: CYN JON I Report Released Date/Time: Feb 02, 2024 12:54 PM Reporting Lab: [facility] [address] [place] [phone] Performing Lab: [facility] [address] [place] [phone] [facility] LIPID PANEL (STL) CHOLESTEROL IN LDL [MASS/VOLUM E] IN SERUM OR PLASMA BY CALCULATION 61 mg/dL 02/23 Specimen Type: PLASMA Comment: No hemolysis noted. Ordering Provider: CYN JON I Report Released Date/Time: Feb 02, 2024 12:54 PM Reporting Lab: [facility] [address] [place] [phone] Performing Lab: [facility] [address] [place] [phone] [facility] LIPID PANEL (STL) CHOLESTEROL IN HDL [MASS/VOLUM E] IN SERUM OR PLASMA 48 mg/dL 40 02/23 Specimen Type: PLASMA Comment: No hemolysis noted. Ordering Provider: CYN JON I Report Released Date/Time: Feb 02, 2024 12:54 PM Reporting Lab: [facility] [address] [place] [phone] Performing Lab: [facility] [address] [facility] [place] [phone] [facility] BASIC METABOLIC PANEL CREATININE [MASS/VOLUM E] IN SERUM OR PLASMA 1.04 mg/dL 0.7 - 1.3 12/07 Specimen Type: PLASMA Comment: No hemolysis noted. Ordering Provider: CYN JON I Report Released Date/Time: Dec 04, 2022 10:37 AM Reporting Lab: [facility] [address] [place] [phone] Performing Lab: [facility] [address] [place] [phone] [facility] UREA NITROGEN [MASS/VOLUM E] IN SERUM OR PLASMA 13.1 mg/dL 9.0 - 25.0 12/07 Specimen Type: PLASMA Comment: No hemolysis noted. Ordering Provider: CYN JON I Report Released Date/Time: Dec 04, 2022 10:37 AM Reporting Lab: [facility] [address] [place] [phone] Performing Lab: [address] [phone] [facility] METABOLIC PANEL GLUCOSE [MASS/VOLUM E] IN SERUM OR PLASMA 95 mg/dL 72 - 99 12/07 Specimen Type: PLASMA Comment: No hemolysis noted. Ordering Provider: CYN JON I Report Released Date/Time: Dec 04, 2022 10:37 AM Reporting Lab: [facility] [address] [place] [phone] Performing Lab: [facility] [address] [place] [phone] [facility] BASIC METABOLIC PANEL SODIUM [MOLES/VOLU ME] IN SERUM OR PLASMA 138 meq/L 136 - 145 12/07 Specimen Type: PLASMA Comment: No hemolysis noted. Ordering Provider: CYN JON I Report Released Date/Time: Dec 04, 2022 10:37 AM Reporting Lab: [facility] [address] [place] [phone] Performing Lab: [facility] [address] [facility] [place] [address] [facility] BASIC METABOLIC PANEL POTASSIUM [MOLES/VOLU ME] IN SERUM OR PLASMA 4.4 meq/L 3.5 - 5 12/07 Specimen Type: PLASMA Comment: No hemolysis noted. Ordering Provider: CYN JON I Report Released Date/Time: Dec 04, 2022 10:37 AM Reporting Lab: [facility] [address] [facility] [phone] Performing Lab: [facility] [address] [facility] [address] [facility] BASIC METABOLIC PANEL CHLORIDE [MOLES/VOLU ME] IN SERUM OR PLASMA 105 meq/L 98 - 107 12/07 Specimen Type: PLASMA Comment: No hemolysis noted. Ordering Provider: CYN JON I Report Released Date/Time: Dec 04, 2022 10:37 AM Reporting Lab: [facility] [address] [facility] [address] Performing Lab: [facility] [address] [facility] [address] [facility] BASIC METABOLIC PANEL CARBON DIOXIDE, TOTAL [MOLES/VOLU ME] IN SERUM OR PLASMA 23 meq/L 22 - 31 12/07 Specimen Type: PLASMA Comment: No hemolysis noted. Ordering Provider: CYN JON I Report Released Date/Time: Dec 04, 2022 10:37 AM Reporting Lab: [facility] [address] [facility] [phone] Performing Lab: [facility] [address] [facility] [address] [facility] BASIC METABOLIC PANEL CALCIUM [MASS/VOLUM E] IN SERUM OR PLASMA 9.1 mg/dL 8.4 - 10.4 12/07 Specimen Type: PLASMA Comment: No hemolysis noted. Ordering Provider: CYN JON I Report Released Date/Time: Dec 04, 2022 10:37 AM Reporting Lab: [facility] [address] [facility] [address] Performing Lab: [facility] [address] [facility] [place] [address] [facility] BASIC METABOLIC PANEL GLOMERULAR FILTRATION RATE/1.73 SQ M.PREDICTED [VOLUME RATE/AREA] IN SERUM, PLASMA OR BLOOD BY CREATININE- BASED FORMULA (CKD-EPI 2020) 92.5 60 12/07 Specimen Type: PLASMA Comment: No hemolysis noted. Ordering Provider: CYN JON I Report Released Date/Time: Dec 04, 2022 10:37 AM Reporting Lab: [facility] [address] [facility] [place] [address] Performing Lab: [facility] [address] [facility] [address] [facility] Vital Signs Combined list of inpatient and outpatient Vital Signs from Department of Defense and Veterans Affairs, ranging from 12 months to all on record, depending upon the facility. Vital Sign Value Date Comments Source SYSTOLIC BLOOD PRESSURE 124 07/21/19 24 11:48:57 [facility] DIASTOLIC BLOOD PRESSURE 75 024 11:48:57 [facility] PULSE OXIMETRY 99 07/21/2023 11:48:57 [facility] WEIGHT 185.4 07/21/2023 11:48:57 [facility] BMI 25 kg/m2 07/21/2023 11:48:57 [facility] PAIN 0 07/21/2023 11:48:57 [facility] HEIGHT 73 07/21/2023 11:48:57 [facility] TEMPERATURE 98 07/21/2023 11:48:57 [facility] PULSE 64 07/21/2023 11:48:57 [facility] RESPIRATION 16 07/21/2023 11:48:57 [facility] Encounters Combined list of: 1) Encounters from Department of Veterans Affairs facilities going backup to the last 18 months, not all VA inpatient encounters are included; 2) Encounters from the Department of Defense facilities going backup to 280 months. Location Location Details Encounter Type Encounter Number Reason For Visit Attending Provider ADM Date DC Date Status Disposition Source [facility] OFFICE O/P EST MOD 30-39 MIN [id number] Diagnos is: ICD-10- CM R00.2 Palpita tions DANAY,NID HI 12/04 [facility] Outpatient Encounter [id number] Diagnos is: ICD-10- CM R53.82 Chronic fatigue , unspeci fied GINA DiJUDITH 12/07 [facility] Outpatient Encounter [id number] Diagnos is: ICD-10- CM J98.4 Other disorde rs of lung DANAY,NID HI 12/22 [facility] Outpatient Encounter [id number] 01/28 [facility] OFFICE O/P EST MOD 30 MIN [id number] Diagnos is: ICD-10- CM R00.2 Palpita tions DANAY,NID HI 05/31 [facility] OFFICE O/P NEW LOW 30 MIN [id number] Diagnos is: ICD-10- CM L57.0 Actinic keratos is PAXTON BORRERO R 06/10 [facility] Outpatient Encounter [id number] ROXANE DUVAL R 07/15 [facility] OFFICE O/P EST LOW 20 MIN [id number] Diagnos is: ICD-10- CM B07.9 Viral wart, unspeci fied Kaelyn RAMIREZ 07/15 [facility] OFFICE O/P EST MOD 30 MIN [id number] Diagnos is: ICD-10- CM R00.2 Palpita tions DANAY,NID HI 07/20 [facility] Outpatient Encounter [id number] 08/23 [facility] Outpatient Encounter [id number] MEAGAN VORA R 11/17 [facility] Outpatient Encounter [id number] MEAGAN VORA R 11/17 [facility] Outpatient Encounter [id number] MEAGAN VORA R 11/17 [facility] Outpatient Encounter [id number] MEAGAN VORA R 11/18 [facility] Outpatient Encounter [id number] MEAGAN VORA R 11/18 [facility] Outpatient Encounter [id number] DANAYNID HI 02/02 [facility] Outpatient Encounter [id number] DANAYNID HI 02/03 [facility] Outpatient Encounter [id number] DANAYNID HI 02/17 [facility] N [facility] OFFICE O/P EST MOD 30 MIN [id number] Diagnos is: ICD-10- CM R00.2 Palpita tions CAROLINA JON HI 02/17 [facility] Outpatient Encounter [id number] STEPHANI GARCIA 03/13 [facility] SAI [place] Social History Combined list of available smoking, tobacco, and other social history from Department of Defense and Veterans Affairs facilities. Social History Type Response Date Comment [facility] e Tobacco smoking status NHIS TX-TOBACCO NEVER USED CIGARETTES 02/18/2024 [facility] History of tobacco use TX-TOBACCO NEVER USED OTHER TYPE 02/18/2024 [facility] History of tobacco use TX-TOBACCO NEVER USED 12/04/2022 [facility] History of tobacco use TX-TOBACCO NEVER USED 09/23/2021 [facility]
--- OUTSIDE RECORDS SUMMARY | 2024-06-07 00:27 | XMS_ITS | Encounter Summary ---
Author Organization [facility] Address [address] [place] [address] Phone Care Team Providers Care Tank Worker Name Role Phone No, Physician Primary Care Provider [phone] Fran Nguyễn DO Primary Care Provider [phone] Alexandr Lan MD Unavailable [phone] Varsha Arenas MD Primary Care Provider [phone] Encounter Details Date Type Department Care Team (Latest Contact Info) Description 07/09/2023 Orders Only [facility] Scanning, Provider Social History Tobacco Use Types Packs/Day Years Used Date Smoking Tobacco: Never Personal Safety Answer Date Recorded Getting School Help Needed Not on file 07/11 Sex and Gender Information Value Date Recorded Sex Assigned at Not on file 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[employer] Gender Identity Not on file Sexual Orientation Not on file documented as of this encounter Plan of Treatment Not on file documented as of this encounter Procedures Procedure Name Priority Date/Time Associated Diagnosis Comments CARDIOLOGY DOCUMENT SCAN 07/09/2023 documented in this encounter Results * Cardiology Document Scan (07/09/2023) Anatomical Region Laterality Modality Other us Provider Scanning CV CARDIAC SERVICES PROCEDURES Final Result documented in this encounter Visit Diagnoses Not on filedocumented in this encounter Care Teams Tank Worker Relationship Specialty Start Date End Date No, Physician PCP - General 07/09/23 07/14/23 Fran Nguyễn DO NPI: [id number] [place] [address] [place] [address] PCP - General Family Medicine 07/15/23 08/31/23 Varsha Arenas MD [address] [place] [address] PCP - General Family Medicine 09/01/23 Alexandr Lan MD [address] [place] [address] [address] [place] [address] Consulting Physician Cardiovascular Disease 07/22/23 documented as of this encounter
--- OUTSIDE RECORDS SUMMARY | 2024-06-07 00:27 | XMS_ITS | Encounter Summary ---
Author Organization [facility] Address [address] [place] [address] Care Team Providers Care Success Coach Name Role Phone No, Physician Primary Care Provider [phone] Fran Nguyễn DO Primary Care Provider [phone] Alexandr Lan MD Unavailable [phone] Varsha Arenas MD Primary Care Provider [phone] Encounter Details Date Type Department Care Team (Late st Contact Info) Description 07/10/2023 Orders Only [facility] Health Information Management [address] [place] [address] Scanning, Provider Social History Tobacco Use Types Packs/Day Years Used Date Smoking Tobacco: Never Personal Safety Answer Date Recorded Getting School Help Needed Not on file 07/11 Sex and Gender Information Value Date Recorded Sex Assigned at Not on file 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 Gender Identity Not on file Sexual Orientation Not on file documented as of this encounter Plan of Treatment Not on file documented as of this encounter Procedures Procedure Name Priority Date/Time Associated Diagnosis Comments CARDIOLOGY DOCUMENT SCAN 07/10/2023 SCAN - RADIOLOGY/IMAGING 07/09/2023 documented in this encounter Results * Cardiology Document Scan (07/10/2023) Anatomical Region Laterality Modality Other us Provider Scanning CV CARDIAC SERVICES PROCEDURES Final Result * SCAN - RADIOLOGY/IMAGING (07/09/2023) Anatomical Region Laterality Modality Other us Provider Scanning Edited Result - Final documented in this encounter Visit Diagnoses Not on filedocumented in this encounter Care Teams Success Coach Relationship Specialty Start Date End Date No, Physician PCP - General 07/09/23 07/14/23 Fran Nguyễn DO [address] [address] PCP - General Family Medicine 07/15/23 08/31/23 Varsha Arenas MD [address] [place] [address] PCP - General Family Medicine 09/01/23 Alexandr Lan MD [address] [address] Consulting Physician Cardiovascular Disease 07/22/23 documented as of this encounter
--- NOTE | 2024-06-07 10:02 | P.SEDATION_ITS ---
Moderate Sedation Note-Pt Data Patient Data Diagnosis: Patent foramen ovale status post percutaneous closure in 2023 Present Complaint: No complaints Procedure to be performed/Plan: Transesophageal echo with saline contrast injection Allergies Allergy/AdvReac Type Severity Reaction Status Date / Time No Known Allergies Allergy Mild Verified 06/06/24 13:37 Home Medications ?Medication ?Instructions ?Recorded ?Confirmed ?Type aspirin 81 mg tablet,delayed 81 mg PO QAM #30 tabs 07/10/23 06/07/24 Rx release atorvastatin 40 mg tablet 40 mg PO DAILY #90 tabs 09/02/23 06/07/24 Rx multivitamin with minerals-folic 1 tablet PO DAILY 06/06/24 06/07/24 History acid 0.4 mg tablet omega-3 fatty acids 1,000 mg PO DAILY 06/06/24 06/07/24 History Sedation/Anesthesia: No previous sedation/anesthesia problems (including family history). [facility] Past Medical History Medical History ASD (atrial septal defect) Cerebrovascular disease History of COVID-19 Right thalamic infarction Surgical History Surgical History History of tonsillectomy Family History Family History Father Leukemia Afib Mother Hypertension Social History Social History (Updated 09/02/23 @ 13:59 by LIDA Rausch) Social History: Surrogate medical decision maker: Nettie Akhtar, spouse. Code status: Full code. Smoking status: Never smoker Second hand tobacco smoke exposure: No Alcohol intake: current Drinks per week: 2 Do You Feel Safe in your Home?: Yes Lack of Transportation: No Lack of Food: Never True Current Housing: I Have Housing Concerned About Future Housing: No Difficulty Paying Gas/Electric Bills: No Difficulty Paying for Meds: No Currently Unemployed: No Education: Bachelor's Degree Difficulty w/ Childcare or Family Care: No Living arrangements: with family Additional living arrangements comments: Lives with spouse and children in [place]. 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 Spiritual care concerns: No Mod Sed Physical Exam Physical Exam Pre Procedural Exam: Normal: Appearance, Throat, Airway, Lungs, Heart Size, Heart Rate, Heart Rhythm, Neuro Exam and Extremities Hours since solid foods: 12 Hours since liquid intake: 12 Mallampati Classification: class II Internal Medicine - PN: Obj Da Vital Signs Vital Signs: Vital Signs - 24 hr 06/07/24 09:34 06/07/24 10:00 Temperature 36.8 C Pulse Rate 69 63 Respiratory Rate 12 16 Blood Pressure 113/77 128/86 Pulse Oximetry 100 Oxygen Delivery Room Air Nasal Cannula Oxygen Flow Rate 2 ASA Classification/Sedation ASA Classification/Sedation ASA Class: II Emergent: No Risks: Risks, benefits and alternatives explained and patient/family accepted plan for sedation. Patient re-evaluated immediately prior to sedation.
--- NOTE | 2024-06-07 10:19 | WPDCARDPROC ---
Cardiac Cath Procedure Note Date of procedure:: 06/07/24 Performing physician:: Alexandr Lan MD Indication:: History of PFO, status post closure Brief clinical history:: This is a 43-year-old man with a history of a patent foramen ovale which was closed in 2023 with a cribriform device. He is been having intermittent neurological symptoms in his neurologic neurology loss prevention consultant has requested this study to be sure that his PFO is closed. Procedure Procedure performed:: Transesophageal echocardiogram with saline contrast injection Sedation/Medication given:: Intravenous propofol in aliquots total dosage of 100 mg administered Access site:: IV in right arm Estimated blood loss:: None Procedure note:: Patient was brought to the cardiac catheterization lab holding area in the postabsorptive state IV access was placed in the right upper extremity he was in the supine position. The patient had a benzocaine spray to the oropharynx for topical anesthesia. Following this he was sedated using propofol in aliquots. A total of dosage of 100 mg was given which provided very good procedural sedation. Following this the ANU probe was placed into the hypopharynx and advanced without difficulty into the esophagus. Esophageal echocardiography was then performed multi planer probe and color Doppler interrogation of the atrial septum. The peripheral IV was then also used to conduct agitated saline contrast injection as described below. Following this the procedure was terminated the ANU probe was removed and the patient was recovered uneventfully. Findings:: Left atrium is normal in size the mitral valve leaflets appear to be unremarkable in appearance. The left ventricle is of normal dimension thickness and contractility. The aortic valve is trileaflet and unremarkable in appearance. The tricuspid and pulmonic valves are normal in appearance the right atrium and ventricle are not enlarged. There is clearly visible ASD occluder a present in the mid septum. Color Doppler demonstrates no detectable flow/shunting in the region of the atrial septum. Agitated saline contrast injection shows very good opacification of the right heart chambers and no evidence of right to left shunting. Conclusion:: History of patent foramen ovale which has been effectively closed with a cribriform occluder device. No residual shunting is identified with transesophageal ECHO using color Doppler and agitated saline contrast injection Alexandr Lan MD [facility]
== END 2024-06-07 11:15 | disposition home or self-care (01) ==
PROVIDERS: Visit Provider Specialist
PROC: (CPT 93312; principal; 2024-06-07 10:00)
DX: Q21.12 Patent foramen ovale (principal)
CPT/HCPCS: 93312; 93320; 93325; J2704; J7040